=== PATIENT | female | born 1970 | race Caucasian/White ===

== ENCOUNTER 2020-12-10 23:57 | Emergency (ER) | payer OTHER ==
--- OUTSIDE RECORDS SUMMARY | 2020-12-11 00:03 | XMS REPORT | Continuity of Care Document ---
:1970 Author Organization [facility] t Address [address] [place] [address] Care Team Providers Name Role Phone MARILYN Primary Care Physician Unavailable WHITNEY Attending Clinician Unavailable ML DAMON Attending Clinician Unavailable HNOEY Attending Clinician Unavailable LEXIS Attending Clinician Unavailable Payers Payer Name Policy Type Policy Number Effective Date Expiration Date S matthieu [employer] 2 [id number] 2020 00:00:00 [employer] O [id number] 2011 00:00:00 Problems This patient has no known problems. Allergies, Adverse Reactions, Alerts This patient has no known allergies or adverse reactions. Medications This patient has no known medications. Vital Signs Vital Name Observation Time Observation Value Comments Source HEIGHT 2020-03-04 11:29:00 157.5 cm WEIGHT 2020-03-04 11:29:00 125.6 kg Procedures This patient has no known procedures. Encounters Start End Encounter Admission Attending Care Care Encounter Source Date/Time Date/Time Type Type Clinicians Facility Department ID 2020-08-29 Outpatient WHITNEY [facility] [id number] [place] 03:19:58 [facility] 2020-12-18 2020-12-18 Outpatient JADE DAMON [id number] Jade 15:30:00 15:30:00 ELSA jackson 2020-12-10 2020-12-10 Outpatient JADE DAMON [id number] Jade 13:30:00 13:30:00 ELSA Greenol manuel 2020-12-08 2020-12-08 Outpatient JADE DAMON JADE [id number] Jade 09:00:00 09:00:00 ELSA Stacy manuel 2020-11-23 2020-11-23 Telephone REN Cee [id number] 00:00:00 00:00:00 Trina SUBRAMANIAN [id number] 2020-03-04 2020-03-04 Outpatient JESUS MÉNDEZ MDA MDA [id number] 12:00:00 23:59:00 JEAN CARLOS calero 2020-03-04 2020-03-04 Outpatient JESUS PIRES MDA MDA [id number] 10:49:04 11:52:36 LAZ calero 2020-03-04 2020-03-04 Outpatient JESUS PIRES MDA MDA [id number] 09:51:32 09:51:32 LAZ calero Results This patient has no known results.
[2020-12-11] MEDS ORDERED: LIDOCAINE VISCOUS 2% SOLN 15 ML UDC ONE (01:36)
[2020-12-11 01:49] LABS: SARS-COV-2 RT PCR NEGATIVE (NEGATIVE)
--- NOTE | 2020-12-11 02:13 | EDPHYS ---
Physician Documentation [facility] Name: Gretchen Galarza Age: 50 yrs Sex: Female : 1970 Arrival Date: 12/11/2020 Time: 00:08 Bed 25 Private MD: ED Physician Sol Hernandez HPI: 12/11 00:45 This 50 yrs old Female presents to ER via Ambulatory with complaints of cp Allergy Symptoms. 00:45 The patient presents with sore throat. cp 00:45 The patient describes throat pain as constant, dry. cp 00:45 Onset: The symptoms/episode began/occurred 3 day(s) ago. cp 00:45 Associated signs and symptoms: Pertinent positives: cough, earache, Pertinent negatives cp diarrhea, fever, headache, rhinorrhea. 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 - Irregular menses kg Historical: - Allergies: 00:12 None; kg - Home Meds: 00:12 pravastatin 40 mg oral tab 1 tab once daily [Active]; levocetirizine 5 mg oral tab 1 kg tab once daily [Active]; sotalol 80 mg Oral tab 1 tab 2 times per day [Active]; allopurinol 100 mg Oral tab 1 tab once daily [Active]; lisinopril 10 mg oral tab once daily [Active]; montelukast 10 mg oral tab 1 tab once daily [Active]; Ozempic subcutaneous once wkly [Active]; Coreg Oral [Active]; olopatadine 0.6 % nasal spry [Active]; - PMHx: 00:12 PCOS; Hypertension; cardiomyopathy; Hypercholesterolemia; kg - PSHx: 00:12 section; cardiac ablation; uterine ablation; I\T\D of staph infection right arm; kg - Immunization history:: Adult Immunizations up to date, Client reports receiving the 2nd dose of the Covid vaccine, Date received: May 2020 Client reports receiving the 1st dose of the Covid vaccine, April 2020. - Social history:: Smoking status: Patient denies any tobacco usage or history of. Patient uses alcohol, occasionally. ROS: 00:50 Constitutional: Negative for body aches, chills, fever, poor PO intake. cp 00:50 Eyes: Negative for injury, pain, redness, and discharge. cp 00:50 ENT: Positive for sore throat, Negative for drainage from ear(s), sinus congestion, sinus pain, difficulty swallowing, difficulty handling secretions, hoarseness. 00:50 Neck: Negative for pain with movement, pain at rest, stiffness. 00:50 Respiratory: Positive for cough, with no reported sputum, Negative for shortness of breath, wheezing. 00:50 Abdomen/GI: Negative for abdominal pain, nausea, vomiting, and diarrhea. 00:50 Skin: Negative for cellulitis, rash. 00:50 Neuro: Negative for altered mental status, headache, weakness. 00:50 All other systems are negative. Exam: 00:55 Constitutional: The patient appears in no acute distress, alert, awake, cp non-diaphoretic, non-toxic, well developed, well nourished, obese. 00:55 Head/Face: Normocephalic, atraumatic. cp 00:55 Eyes: Periorbital structures: appear normal, Conjunctiva: normal, no exudate, no injection, Sclera: no appreciated abnormality, Lids and lashes: appear normal, bilaterally. 00:55 ENT: External ear(s): are unremarkable, Ear canal(s): are normal, clear, TM's: bulging, is not appreciated, bilaterally, dullness, bilaterally, erythema, is not appreciated, bilaterally, Nose: is normal, Mouth: Lips: moist, Oral mucosa: moist, Posterior pharynx: Airway: no evidence of obstruction, patent, Tonsils: no enlargement, no exudate, Uvula: midline, swelling, is not appreciated, erythema, that is moderate. 00:55 Neck: ROM/movement: is normal, is supple, no meningismus, no nuchal rigidity, Lymph nodes: no appreciated lymphadenopathy. 00:55 Chest/axilla: Inspection: normal, Palpation: is normal, no crepitus, no tenderness. 00:55 Cardiovascular: Rate: normal, Rhythm: regular. 00:55 Respiratory: the patient does not display signs of respiratory distress, Respirations: normal, no use of accessory muscles, no retractions, labored breathing, is not present, Breath sounds: are clear throughout, no decreased breath sounds, no stridor, no wheezing. 00:55 Skin: no rash present. Vital Signs: 00:09 BP 153 / 99; Pulse 71; Resp 20; Temp 98.7(O); Pulse Ox 98% on R/A; Weight 116.57 kg kg (R); Height 5 ft. 2 in. (157.48 cm); Pain 10/10; 02:50 BP 125 / 82; Pulse 78; Resp 19; Pulse Ox 99% ; lh3 00:09 Body Mass Index 47.01 (116.57 kg, 157.48 cm) kg MDM: 00:36 Patient medically screened. cp 01:00 Differential diagnosis: epiglottitis, group A strep tonsillitis, influenza, laryngitis, cp ashvin's angina, mononucleosis, peritonsillar abscess retropharyngeal abcess tonsillitis, uvulitis, COVID-19. 02:10 Data reviewed: vital signs, nurses notes, lab test result(s), and as a result, I will cp discharge patient. Counseling: I had a detailed discussion with the patient and/or guardian regarding: the historical points, exam findings, and any diagnostic results supporting the discharge/admit diagnosis, lab results, to return to the emergency department if symptoms worsen or persist or if there are any questions or concerns that arise at home. Response to treatment: the patient's symptoms have mildly improved after treatment, and as a result, I will discharge patient. ED course: VSS. Labs reviewed and negative results for COVID-19, influenza, and mono. Patient reports negative rapid test for strep today. Currently taking Amoxicillin for ear infection. Will discharge to home for continued monitoring. 12/11 00:44 Order name: [place] Screen Profile; Complete Time: 01:55 cp 12/11 01:55 Interpretation: Reviewed. 12/11 01:49 Order name: COVID-19/FLU A+B; Complete Time: 01:55 EDMS 12/11 01:55 Interpretation: Reviewed. cp Administered Medications: 01:19 Drug: Viscous Lidocaine Liquid (4 %) 5 ml Route: Mucous Membrane; lh3 02:38 Drug: Lortab (HYDROcodone-acetaminophen) Liquid 15 ml Route: PO; lh3 02:52 Follow up: Response: No adverse reaction lh3 02:38 Drug: Decadron-pedi - Decadron (dexamethasone) (0.6mg/kg) 10 mg Route: IM; Site: right lh3 deltoid; 02:52 Follow up: Response: No adverse reaction 3 Disposition: 07:33 Co-signature as Attending PhysicianSol I agree with the assessment and plan sp3 of care. Disposition Summary: 12/11/20 02:12 Discharge Ordered Location: Home cp Problem: new cp Symptoms: have improved cp Condition: Stable cp Diagnosis - Acute pharyngitis, unspecified cp Followup: cp - With: Private Physician - When: 2 - 3 days - Reason: Worsening of condition Discharge Instructions: - Discharge Summary Sheet cp - Pharyngitis cp - Sore Throat cp Forms: - Medication Reconciliation Form cp - Thank You Letter cp - Antibiotic Education cp - Prescription Opioid Use cp - Work release form 3 Prescriptions: - Lidocaine Viscous - take 5 milliliter by ORAL route every 4-6 hours As needed; 1 bottle; Refills: cp 0, Product Selection Permitted Signatures: Dispatcher [employer] EDMS Fidel Rg PA PA cp Graham, Kristen, RN RN Sol Lord 3 Heidi Wilson RN RN 3 Corrections: (The following items were deleted from the chart) 01:10 00:45 CORONAVIRUS+MR.LAB.BRZ ordered. EDMS EDMS 01:10 00:45 Influenza Screen (A \T\ B)+BA.LAB.BRZ ordered. EDMS EDMS
--- NOTE | 2020-12-11 02:13 | ER ---
Nurse's Notes [facility] Name: Gretchen Galarza Age: 50 yrs Sex: Female : 1970 Arrival Date: 12/11/2020 Time: 00:08 Bed 25 Private MD: Diagnosis: Acute pharyngitis, unspecified Presentation: 12/11 00:09 Chief complaint: Patient states: Sore throat, difficult swallowing, dry throat, ear kg pressure x 2 days. Pt saw PCP on Monday and her was told her ear were red. They started her on Amoxicillin 500 mg TID. Pt stated she felt like it had gotten worse so went back to PCP today and they tested her for strep which was negative. Pt denies fevers at home. Coronavirus screen: Client denies travel out of the [place] in the last 14 days. At this time, unable to obtain information related to travel outside the [place] At this time, the client does not indicate any symptoms associated with coronavirus-19. Ebola Screen: Patient negative for fever greater than or equal to 101.5 degrees Fahrenheit, and additional compatible Ebola Virus Disease symptoms Patient denies exposure to infectious person. Patient denies travel to an Ebola-affected area in the 21 days before illness onset. 00:09 Method Of Arrival: Ambulatory kg 00:39 Acuity: VIKI 4 em Triage Assessment: 00:12 General: Appears in no apparent distress. Behavior is calm, cooperative, appropriate kg for age, quiet. Pain: Complains of pain in neck Pain currently is 10 out of 10 on a pain scale. at worst was 10 out of 10 on a pain scale. 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 - Irregular menses kg Historical: - Allergies: 00:12 None; kg - Home Meds: 00:12 pravastatin 40 mg oral tab 1 tab once daily [Active]; levocetirizine 5 mg oral tab 1 kg tab once daily [Active]; sotalol 80 mg Oral tab 1 tab 2 times per day [Active]; allopurinol 100 mg Oral tab 1 tab once daily [Active]; lisinopril 10 mg oral tab once daily [Active]; montelukast 10 mg oral tab 1 tab once daily [Active]; Ozempic subcutaneous once wkly [Active]; Coreg Oral [Active]; olopatadine 0.6 % nasal spry [Active]; - PMHx: 00:12 PCOS; Hypertension; cardiomyopathy; Hypercholesterolemia; kg - PSHx: 00:12 section; cardiac ablation; uterine ablation; I\T\D of staph infection right arm; kg - Immunization history:: Adult Immunizations up to date, Client reports receiving the 2nd dose of the Covid vaccine, Date received: May 2020 Client reports receiving the 1st dose of the Covid vaccine, April 2020. - Social history:: Smoking status: Patient denies any tobacco usage or history of. Patient uses alcohol, occasionally. Screenin:20 Abuse screen: Denies threats or abuse. Denies injuries from another. Nutritional kg screening: No deficits noted. Tuberculosis screening: No symptoms or risk factors identified. Fall Risk None identified. Assessment: 02:51 Reassessment: Patient appears in no apparent distress at this time. Respiratory: Airway lh3 is patent. Vital Signs: 00:09 BP 153 / 99; Pulse 71; Resp 20; Temp 98.7(O); Pulse Ox 98% on R/A; Weight 116.57 kg kg (R); Height 5 ft. 2 in. (157.48 cm); Pain 10/10; 02:50 BP 125 / 82; Pulse 78; Resp 19; Pulse Ox 99% ; lh3 00:09 Body Mass Index 47.01 (116.57 kg, 157.48 cm) kg ED Course: 00:08 Patient arrived in ED. wm 00:20 Patient has correct armband on for positive identification. kg 00:31 Fidel Rg PA is PHCP. cp 00:31 Sol Hernandez is Attending Physician. cp 00:39 Triage completed. em 01:18 Heidi Wilson, MEGHA is Primary Nurse. lh3 01:19 [place] Screen Profile Sent. lh3 02:50 Arm band placed on right wrist. lh3 02:51 No provider procedures requiring assistance completed. Inserted saline lock: 20 gauge lh3 in left antecubital area, using aseptic technique. 02:51 IV discontinued, bleeding controlled. lh3 Administered Medications: 01:19 Drug: Viscous Lidocaine Liquid (4 %) 5 ml Route: Mucous Membrane; lh3 02:38 Drug: Lortab (HYDROcodone-acetaminophen) Liquid 15 ml Route: PO; lh3 02:52 Follow up: Response: No adverse reaction 3 02:38 Drug: Decadron-pedi - Decadron (dexamethasone) (0.6mg/kg) 10 mg Route: IM; Site: right lh3 deltoid; 02:52 Follow up: Response: No adverse reaction 3 Outcome: 02:12 Discharge ordered by MD. serrano 02:51 Discharged to home ambulatory. 3 02:51 Condition: stable 02:51 Discharge instructions given to patient, Instructed on discharge instructions, medication usage, Demonstrated understanding of instructions, medications. 02:53 Patient left the ED. 3 Signatures: Singh Calloway, RN RN Fidel Novoa PA PA cp Graham, Kristen, Ama Quinonez RN, kg, Latisha RN RN 3
[2020-12-11] MEDS ORDERED: dexAMETHasone 10 MG/ML VIAL ONE (02:54)
[2020-12-11] MEDS ORDERED: HYDROCOD 2.5mg-ACETAMIN 108mg/5mL Soln ONE (02:54)
[2020-12-11 03:34] VITALS: TEMP 98.7
[2020-12-11 03:37] VITALS: BP 125/82; O2SAT 99
== END 2020-12-11 02:53 | disposition home or self-care (01) ==
LOC: ER 23:57
DX: J02.9 Acute pharyngitis, unspecified (principal); R05 Cough; Z20.822 Contact with and (suspected) exposure to COVID-19; I10 Essential (primary) hypertension
CPT/HCPCS: 36415; 86308; 0240U; 96372; 99283; J1100

== ENCOUNTER 2021-01-29 00:36 | Emergency (ER) | payer OTHER ==
[2021-01-29 02:09] LABS: Absolute Lymphocytes (CBC) 1.5 K/uL (0.7-4.9); Basophils % 0.4 % (0-1.3); Hematocrit 41.2 % (36.0-45.0); Lymphocytes % 13.8 % (15.3-44.8); MPV 7.8 fL (7.6-11.3); RBC Red Blood Cell Count 4.62 M/uL (3.86-4.86)
[2021-01-29 02:11] LABS: Urine Blood Trace-intact (Negative); Urine Glucose Negative (Negative); Urine Protein Negative (Negative); Urine Specific Gravity 1.025 (1.005-1.030)
[2021-01-29 02:29] LABS: Albumin 3.5 g/dL (3.4-5.0); Bilirubin Direct 0.1 mg/dL (0-0.2); Bilirubin Total 0.8 mg/dL (0.2-1.0); Protein, Total 7.3 g/dL (6.4-8.2)
--- NOTE | 2021-01-29 04:14 | EDPHYS ---
Physician Documentation [facility] Name: Gretchen Galarza Age: 50 yrs Sex: Female : 1970 Arrival Date: 01/29/2021 Time: 00:39 Bed 10 Private MD: ED Physician Ambrose Joe HPI: 01/29 01:32 This 50 yrs old Female presents to ER via Wheelchair with complaints of pkl Abdominal Cramping, Diarrhea. 01:32 The patient presents with abdominal pain in the upper abdomen. Onset: The pkl symptoms/episode began/occurred just prior to arrival, 2 hour(s) ago. The symptoms do not radiate. Associated signs and symptoms: Pertinent positives: diarrhea. 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 cc4 Historical: - Allergies: 00:53 anything with alcohol in it; df1 - Home Meds: 00:53 allopurinol 100 mg Oral tab 1 tab once daily [Active]; carvedilol 12.5 mg oral tab 1 df1 tab 2 times per day [Active]; lisinopril 10 mg Oral tab 1 tab once daily [Active]; pravastatin 40 mg Oral tab 1 tab once daily [Active]; sotalol 80 mg Oral tab 1 tab 2 times per day [Active]; Ozempic subcutaneous once wkly [Active]; montelukast 10 mg Oral tab 1 tab once daily [Active]; levocetirizine 5 mg Oral tab 1 tab once daily [Active]; - PMHx: 00:53 cardiomyopathy; PCOS; Diabetes - NIDDM; Hypertension; Hypercholesterolemia; df1 - PSHx: 00:53 I\T\D of staph infection right arm; section; Cardiac Ablation; uterine ablation; df1 - Immunization history:: Adult Immunizations up to date, Client reports receiving the 2nd dose of the Covid vaccine. - Social history:: Smoking status: Patient denies any tobacco usage or history of. Patient/guardian denies using alcohol, street drugs. ROS: 01:32 Eyes: Negative for injury, pain, redness, and discharge, ENT: Negative for injury, pkl pain, and discharge, Neck: Negative for injury, pain, and swelling, Cardiovascular: Negative for chest pain, palpitations, and edema, Respiratory: Negative for shortness of breath, cough, wheezing, and pleuritic chest pain. 01:32 Abdomen/GI: Positive for abdominal pain, of the right upper quadrant and left upper quadrant. 01:32 Back: Negative for acute changes. :32 : Negative for urinary symptoms. :32 MS/extremity: Negative for acute changes. :32 Skin: Negative for rash. 01:32 Neuro: Negative for altered mental status, loss of consciousness. Exam: :32 Head/Face: Normocephalic, atraumatic. Eyes: Pupils equal round and reactive to light, pkl extra-ocular motions intact. Lids and lashes normal. Conjunctiva and sclera are non-icteric and not injected. Cornea within normal limits. Periorbital areas with no swelling, redness, or edema. ENT: Nares patent. No nasal discharge, no septal abnormalities noted. Tympanic membranes are normal and external auditory canals are clear. Oropharynx with no redness, swelling, or masses, exudates, or evidence of obstruction, uvula midline. Mucous membranes moist. Neck: Trachea midline, no thyromegaly or masses palpated, and no cervical lymphadenopathy. Supple, full range of motion without nuchal rigidity, or vertebral point tenderness. No Meningismus. Chest/axilla: Normal chest wall appearance and motion. Nontender with no deformity. No lesions are appreciated. Cardiovascular: Regular rate and rhythm with a normal S1 and S2. No gallops, murmurs, or rubs. Normal PMI, no JVD. No pulse deficits. Respiratory: Lungs have equal breath sounds bilaterally, clear to auscultation and percussion. No rales, rhonchi or wheezes noted. No increased work of breathing, no retractions or nasal flaring. 01:32 Abdomen/GI: Bowel sounds: normal, Palpation: soft, mild abdominal tenderness, in the right upper quadrant. 01:32 Back: Exam negative for acute changes. :32 Musculoskeletal/extremity: Exam is negative for acute changes. :32 Skin: Exam negative for rash. :32 Neuro: Orientation: is normal, Mentation: is normal, Cranial nerves: grossly normal, Motor: is normal. Vital Signs: 00:52 BP 125 / 80; Resp 18; Temp 98.4; Weight 117.93 kg; Height 5 ft. 2 in. (157.48 cm); Pain df1 0/10; 01:11 Pulse 89; Pulse Ox 97% on R/A; df1 02:45 BP 114 / 84; Pulse 87; Resp 18; Temp 98.2; Pulse Ox 100% on R/A; cc4 04:15 BP 101 / 71; Pulse 89; Resp 20; Temp 98.4; Pulse Ox 100% on R/A; cc4 00:52 Body Mass Index 47.55 (117.93 kg, 157.48 cm) df1 MDM: 01:02 Patient medically screened. pkl 04:10 Data reviewed: vital signs, nurses notes, lab test result(s), radiologic studies, CT pkl scan. ED course: Discussed lab and CT Scan results with patient. Advised to follow up with her G. I. ( Dr. Cartagena ) next week. Patient understood instruction. 01/29 01:31 Order name: Basic Metabolic Panel; Complete Time: 02:30 pkl 01/29 01:31 Order name: CBC with Diff; Complete Time: 02:30 pkl 01/29 01:31 Order name: Hepatic Function; Complete Time: 02:30 pkl 01/29 01:31 Order name: Lipase; Complete Time: 02:30 pkl 01/29 01:31 Order name: US Abdomen Limited pkl 01/29 02:11 Order name: Urine Dipstick-Ancillary; Complete Time: 02:30 EDMS 01/29 01:06 Order name: Urine Dipstick-Ancillary (obtain specimen); Complete Time: 02:21 df1 01/29 01:31 Order name: IV Saline Lock; Complete Time: 02:21 pkl 01/29 01:31 Order name: Labs collected and sent; Complete Time: 02:21 pkl 01/29 02:34 Order name: CT Abd/Pelvis - IV Contrast Only pkl Administered Medications: 04:15 Drug: Cipro (ciprofloxacin) 500 mg Route: PO; cc4 04:15 Follow up: Response: No adverse reaction cc4 Disposition Summary: 01/29/21 04:13 Discharge Ordered Location: Home pkl Problem: new pkl Symptoms: have improved pkl Condition: Stable pkl Diagnosis - Abdominal pain. Gastroenteritis pkl Followup: pkl - With: David Cartagena MD - When: 1 week - Reason: Re-evaluation by your physician Discharge Instructions: - Discharge Summary Sheet pkl Forms: - Medication Reconciliation Form pkl - Thank You Letter pkl - Antibiotic Education pkl - Prescription Opioid Use pkl - Work release form cc4 Prescriptions: - Cipro 500 mg Oral Tablet - take 1 tablet by ORAL route every 12 hours for 5 days; 10 tablet; Refills: 0, pkl Product Selection Permitted Signatures: Dispatcher [employer] Ambrose Ghotra MD MD pkl Elsy Benito RN RN cc4 Neris Zelaya df1
--- NOTE | 2021-01-29 04:14 | ER ---
Nurse's Notes [facility] Name: Gretchen Galarza Age: 50 yrs Sex: Female : 1970 Arrival Date: 01/29/2021 Time: 00:39 Bed 10 Private MD: Diagnosis: Abdominal pain. Gastroenteritis Presentation: 01/29 00:52 Chief complaint: Patient states: generalized abd pain. Coronavirus screen: Vaccine df1 status: Patient reports receiving the 2nd dose of the covid vaccine. The client reports previous COVID testing was negative. Date of collection: December 2020. Ebola Screen: Patient negative for fever greater than or equal to 101.5 degrees Fahrenheit, and additional compatible Ebola Virus Disease symptoms Patient denies exposure to infectious person. Patient denies travel to an Ebola-affected area in the 21 days before illness onset. Initial Sepsis Screen: Does the patient meet any 2 criteria? No. Patient's initial sepsis screen is negative. Risk Assessment: Do you want to hurt yourself or someone else? Patient reports no desire to harm self or others. Onset of symptoms was January 28, 2021 at 23:00. 00:52 Method Of Arrival: Wheelchair df1 00:52 Acuity: VIKI 3 df1 00:57 Note Pt states woke up at 2300 last night with abd cramping, nausea, burping, some df1 loose stool. 04:15 Initial Sepsis Screen: Does the patient have a suspected source of infection? No. cc4 Patient's initial sepsis screen is negative. Triage Assessment: 00:52 General: Appears in no apparent distress. States, "My abdomen was hurting/cramping from cc4 11:30 to 12:30", "Now it feels better".. TOW FEEDER: 01:15 [facility] 2012 cc4 Historical: - Allergies: 00:53 anything with alcohol in it; df1 - Home Meds: 00:53 allopurinol 100 mg Oral tab 1 tab once daily [Active]; carvedilol 12.5 mg oral tab 1 df1 tab 2 times per day [Active]; lisinopril 10 mg Oral tab 1 tab once daily [Active]; pravastatin 40 mg Oral tab 1 tab once daily [Active]; sotalol 80 mg Oral tab 1 tab 2 times per day [Active]; Ozempic subcutaneous once wkly [Active]; montelukast 10 mg Oral tab 1 tab once daily [Active]; levocetirizine 5 mg Oral tab 1 tab once daily [Active]; - PMHx: 00:53 cardiomyopathy; PCOS; Diabetes - NIDDM; Hypertension; Hypercholesterolemia; df1 - PSHx: 00:53 I\\T\\D of staph infection right arm; section; Cardiac Ablation; uterine ablation; df1 - Immunization history:: Adult Immunizations up to date, Client reports receiving the 2nd dose of the Covid vaccine. - Social history:: Smoking status: Patient denies any tobacco usage or history of. Patient/guardian denies using alcohol, street drugs. Screenin:08 Abuse screen: Denies threats or abuse. Nutritional screening: No deficits noted. df1 Tuberculosis screening: No symptoms or risk factors identified. Fall Risk None identified. Assessment: 01:15 General: Appears in no apparent distress. Behavior is calm, cooperative, Reports cc4 Reports from 11:30 to 12:30 I was having severe cramping of my abdomen (upper and lower) with sm. loose BM after eating chicken and "I started to break out in a sweat"; states, "I'm not hurting now"; bilateral upper quads of abd tender to palpate; abd. soft/obese; + BS's x 4 quads. Pain: Denies pain. 01:15 GI: Abd is soft Abdomen is tender to palpation Bilateral upper quads of abd. Obese. cc4 01:15 GI: Bowel sounds present X 4 quads. Normoactive. cc4 Vital Signs: 00:52 BP 125 / 80; Resp 18; Temp 98.4; Weight 117.93 kg; Height 5 ft. 2 in. (157.48 cm); Pain df1 0/10; 01:11 Pulse 89; Pulse Ox 97% on R/A; df1 02:45 BP 114 / 84; Pulse 87; Resp 18; Temp 98.2; Pulse Ox 100% on R/A; cc4 04:15 BP 101 / 71; Pulse 89; Resp 20; Temp 98.4; Pulse Ox 100% on R/A; cc4 00:52 Body Mass Index 47.55 (117.93 kg, 157.48 cm) df1 ED Course: 00:39 Patient arrived in ED. bp1 00:53 Triage completed. df1 01:02 Ambrose Joe MD is Attending Physician. pkl 01:45 Urine obtained. Labs ordered per protocol. Drawn by ED staff. X-ray ordered. CT cc4 ordered. Ultrasound of abdomen. 01:53 Inserted saline lock: 22 gauge in left forearm, using aseptic technique. Blood ms4 collected. 02:08 US Abdomen Limited In Process Unspecified. EDMS 02:08 Patient has correct armband on for positive identification. Placed in gown. Bed in low df1 position. Call light in reach. Side rails up X 1. 02:21 Elsy Benito, RN is Primary Nurse. cc4 02:21 Basic Metabolic Panel Sent. cc4 02:21 Hepatic Function Sent. cc4 02:21 Lipase Sent. cc4 03:14 CT Abd/Pelvis - IV Contrast Only In Process Unspecified. EDMS 04:12 David Cartagena MD is Referral Physician. pkl 04:15 No provider procedures requiring assistance completed. cc4 04:15 IV discontinued, intact, bleeding controlled, No redness/swelling at site. Pressure cc4 dressing applied. 04:15 Patient Cipro 500mg given po. cc4 Administered Medications: 04:15 Drug: Cipro (ciprofloxacin) 500 mg Route: PO; cc4 04:15 Follow up: Response: No adverse reaction cc4 Outcome: 04:13 Discharge ordered by . pkl 04:15 Discharged to home with family. cc4 04:15 Condition: improved 04:15 Discharge instructions given to patient, Instructed on discharge instructions, follow up and referral plans. medication usage, Demonstrated understanding of instructions, follow-up care, medications, Prescriptions given X 1. 04:45 Patient left the ED. cc4 Signatures: Dispatcher [employer] EDNC Ambrose Joe MD MD pkl Maureen Pressley bp1 Martha Dailey RN RN ms4 Elsy Benito, MEGHA RN cc4 Neris Zelaya df1 Corrections: (The following items were deleted from the chart) 04:37 02:09 General: Appears in no apparent distress. Behavior is calm, cooperative, df1 cc4 04:37 02:09 Pain: Denies pain. df1 cc4 04:37 02:09 GI: Reports lower abdominal pain, upper abdominal pain, df1 cc4
[2021-01-29] MEDS ORDERED: CIPROFLOXACIN HCL 500 MG TAB ONE (04:37)
[2021-01-29 04:54] VITALS: O2SAT 100
[2021-01-29 04:55] VITALS: BP 101/71; TEMP 98.4
--- NOTE | 2021-01-29 08:32 | RAD REPORT ---
EXAM DESCRIPTION: US - Abdomen Exam Limited - 01/29/2021 2:08 am CLINICAL HISTORY: ABD PAIN COMPARISON: ABDOMINAL EXAM LIMITED dated 02/21/2013 FINDINGS: The gallbladder demonstrates no gallstones. No pericholecystic fluid or gallbladder wall t hickening. The common bile duct is normal measuring 4 mm. The liver demonstrates no findings of intrahepatic biliary dilatation. IMPRESSION: Unremarkable examination.
--- NOTE | 2021-01-29 10:22 | RAD REPORT ---
EXAM DESCRIPTION: CT Abdomen and Pelvis With Intravenous Contrast CLINICAL HISTORY: The patient is 50 years old and is Female; ABD PAIN TECHNIQUE: Axial computed tomography images of the abdomen and pelvis with intravenous contrast. S agittal and coronal reformatted images were created and reviewed. This CT exam was performed using one or more of the following dose reduction techniques: automated exposure control, adjustment of t he mA and/or kV according to patient size, and/or use of iterative reconstruction technique. COMPARISON: No relevant prior studies available. FINDINGS: Lung bases: 3 mm groundglass nodule in the right lower lobe, image 1 series 501. ABDOMEN: Liver: Unremarkable. No mass. Gallbladder and bile ducts: Unremarkable. No calcified stones. No ductal dilation. Pancreas: Unremarkable. No mass. No ductal dilation. Spleen: Mild splenomegaly. Adrenals: Unremarkable. No mass. Kidneys and ureters: Unremarkable. No solid mass. No hydronephrosis. Stomach and bowel: Bowel wall thickening and mild adjacent fat stranding involving the distal sm all bowel. No obstruction. PELVIS: Appendix: No findings to suggest acute appendicitis. Bladder: Unremarkable. No mass. Reproductive: Unremarkable as visualized. ABDOMEN and PELVIS: Intraperitoneal space: Unremarkable. No free air. No significant fluid collection. Bones/joints: No acute fracture. No dislocation. Soft tissues: Unremarkable. Vasculature: Unremarkable. No abdominal aortic aneurysm. Lymph nodes: Unremarkable. No enlarged lymph nodes. IMPRESSION: Bowel wall thickening and mild adjacent fat stranding involving the distal small bowel. Findings are nonspecific but can be seen with enteritis/ileitis. Electronically signed by: Nash Rodriges MD 01/29/2021 3:57 AM CDT Due to temporary technical issues with the PACS/Fluency reporting system, reports are being signed by the in house radiologist without review as a courtesy to ensure prompt reporting. The interpreting r adiologist is fully responsible for the content of the report.
== END 2021-01-29 04:45 | disposition home or self-care (01) ==
LOC: ER 00:36
DX: K52.9 Noninfective gastroenteritis and colitis, unspecified (principal); I10 Essential (primary) hypertension; E11.9 Type 2 diabetes mellitus without complications; E78.00 Pure hypercholesterolemia, unspecified
CPT/HCPCS: 85025; 80048; 36415; 80076; 81003; 83690; 74177; 76705; 99284; Q9967

== ENCOUNTER 2022-04-09 13:55 | Emergency (ER) | payer OTHER ==
--- OUTSIDE RECORDS SUMMARY | 2022-04-09 13:58 | XMS REPORT | Continuity of Care Document ---
:1970 Author Organization [facility] t Address [address] [place] [place] [address] Care Team Providers Name Role Phone [phone] Primary Care Physician Unavailable SANJIV CEE Attending Clinician Unavailable LINETTE WOODY Attending Clinician Unavailable GABRIEL CARDENAS Attending Clinician Unavailable MARISELA JACOBS Attending Clinician Unavailable FOG_A_Provider Attending Clinician Unavailable Alessandra WOLF, Med Zayas Attending Clinician Nima Sears MA Attending Clinician Unavailable LAZ PIRES Attending Clinician Unavailable Garland Flores RN Attending Clinician Unavailable RADIOLOGY Attending Clinician Unavailable Radiology Attending Clinician Unavailable Marisol Solis MA Attending Clinician Unavailable Alida Damon MD Attending Clinician [phone] ALIDA DAMON Attending Clinician Unavailable ANIKA MONIQUE Attending Clinician Unavailable MELISSA PEDROZA Attending Clinician Unavailable JEAN CARLOS MÉNDEZ Attending Clinician Unavailable FOG_A_Provider Admitting Clinician Unavailable DIANE ANDRES Admitting Clinician Unavailable Payers Payer Name Policy Type Policy Number Effective Date Expiration Date S our OPEN ACCESS AETNA [id number] 2011 SELECT EPO 00:00:00 AETNA O [id number] 2011 00:00:00 AETNA (EPO) [id number] 2011 00:00:00 [place] [id number] 2020 EMPLOYEE-AETNA 00:00:00 Problems Condition Condition Condition Status Onset Resolution Last Treating Co mments Source Name Details Category Date Date Treatment Clinician Date 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 0-28 He alth athy athy 00:00: 00 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 (premature 0-28 He alth ventricula ventricula 00:00: r r 00 contractio contractio n) n) Automatic Automatic Disease Active 2020-04 UT atrial atrial 0 Health tachycardi tachycardi 00:00: a a 00 Personal Personal Disease Active 2020-04 UT history of history of 0-28 He alth atrial atrial 00:00: tachycardi tachycardi 00 a a Hypertensi Hypertensi Disease Active 2020-04 U T on on 0 Health 00:00: 00 Encounter Encounter Disease Active Boris y for for 4-16 [facility] 00:00: examinatio examinatio 00 n to n to establish establish care care Obesity Obesity Disease Active Jade 4-16 [facility] 00:00: 00 Anxiety Anxiety Disease Active Jade 4-16 [facility] 00:00: 00 Essential Essential Disease Active Boris molinay hypertensi hypertensi 4-16 Se ybold on on 00:00: 00 Hyperlipid Hyperlipid Disease Active K elsey emia emia 4-16 [facility] 00:00: 00 No known No known Disease Metho di active active st problems problems Hospit a l Allergies, Adverse Reactions, Alerts Allergy Allergy Status Severity Reaction(s) Onset Inactive Treating Comm ents Source Name Type Date Date Clinician NO KNOWN Drug Active Univers ALLERGIE Class ity of [facility] Social History Social Habit Start Date Stop Date Quantity Comments Source History [facility] Health Alcohol Frequency History [facility] Health Alcohol Std Drinks History [facility] Health Alcohol Binge Alcohol intake 2022-02-01 2022-02-01 [facility] 00:[facility] 00:00[facility]00 Hospital Exposure to 2021-11-28 2021-12-08 Not sure [facility] SARS-CoV-2 00:00:00 08:44:00 (event) Alcohol Comment 2021-11-17 2021-11-17 SOCIALLY [facility] 00:00:00 00:00:00 Tobacco use and 2021-11-17 2021-11-17 Smokeless tobacco [facility] exposure 00:00:00 00:00:00 non-user Sex Ass[birth year] At [birth year] [facility] 00:00[facility] 00:[facility]00 Hospital Smoking Status Start Date Stop Date Source Tobacco smoking consumption unknown [facility] Never smoked tobacco [facility] Medications Ordered Filled Start Stop Current Ordering Indication Dosage Frequency Signature Comments Components Source Medication Medication Date Date Medication? Clinician (SIG) Name Name meloxicam 2021- No [id number] 15mg QD Take 1 M ethodi (MOBIC) 15 12-24 10-11 tablet (15 st mg tablet 00:00: 00:00 mg total) Ho spita 00 :00 by mouth l daily. Multiple Yes Take by UT Vitamin 8-17 mouth. Health (multivitam 08:57: in) capsule 27 VITAMIN D Yes QD Take by UT PO 8-17 mouth 1 Health 08:57: (one) time 27 each day. sotalol Yes [id number] 80mg Q.5D Take 1 UT (Betapace) 8-08 tablet (80 Hea lth 80 MG 00:00: mg total) tablet 00 by mouth in the morning and 1 tablet (80 mg total) in the evening. sotalol Yes [id number] 80mg Q.5D Take 1 UT (Betapace) 8-08 tablet (80 Hea lth 80 MG 00:00: mg total) tablet 00 by mouth in the morning and 1 tablet (80 mg total) in the evening. venlafaxine 2022- No [id number] 75mg QD Take 2 UT XR 11-17 capsules Health (Effexor-XR 00:00: 04:59 (75 mg ) 37.5 MG 00 :00 total) by 24 hr mouth 1 capsule (one) time each day. Do not crush or chew. venlafaxine 2022- No [id number] 75mg QD Take 2 UT XR 11-17 capsules Health (Effexor-XR 00:00: 04:59 (75 mg ) 37.5 MG 00 :00 total) by 24 hr mouth 1 capsule (one) time each day. Do not crush or chew. venlafaxine 2022- No [id number] 75mg QD Take 2 UT XR 11-17 capsules Health (Effexor-XR 00:00: 04:59 (75 mg ) 37.5 MG 00 :00 total) by 24 hr mouth 1 capsule (one) time each day. Do not crush or chew. venlafaxine 2022- No [id number] 75mg QD Take 2 UT XR 11-17 capsules Health (Effexor-XR 00:00: 04:59 (75 mg ) 37.5 MG 00 :00 total) by 24 hr mouth 1 capsule (one) time each day. Do not crush or chew. venlafaxine 2022- No [id number] 75mg QD Take 2 UT XR 11-17 capsules Health (Effexor-XR 00:00: 04:59 (75 mg ) 37.5 MG 00 :00 total) by 24 hr mouth 1 capsule (one) time each day. Do not crush or chew. iopamidol 2021- No [id number] 50mL 50 mL, Univers (ISOVUE 11-15 [id number] Intravenou ity of 370-500 mL) 13:30: 13:31 s, ONCE, 1 [place] injection 00 :00 dose, On Medica l 50 mL Mon Branch 11/15/21 at 0845, Routine fluticasone 2021- No USE 2 UT (Flonase) 4-21 04-21 SPRAYS IN [facility] th 50 MCG/ACT 14:42: 00:00 EACH nasal spray 42 :00 NOSTRIL ONCE DAILY Multiple Yes Take by UT Vitamin 4-21 mouth. Health (multivitam 14:07: in) capsule 08 VITAMIN D Yes QD Take by UT PO 4-21 mouth 1 Health 14:07: (one) time 08 each day. Multiple 2022-0 Yes Take by UT Vitamin 4-21 mouth. Health (multivitam 14:07: in) capsule 08 VITAMIN D 2-0 Yes QD Take by UT PO 4-21 mouth 1 Health 14:07: (one) time 08 each day. Multiple 2022-0 Yes Take by UT Vitamin 4-21 mouth. Health (multivitam 14:07: in) capsule 08 VITAMIN D 2-0 Yes QD Take by UT PO 4-21 mouth 1 Health 14:07: (one) time 08 each day. Multiple 2-0 Yes Take by UT Vitamin 4-21 mouth. Health (multivitam 14:07: in) capsule 08 VITAMIN D 2-0 Yes QD Take by UT PO 4-21 mouth 1 Health 14:07: (one) time 08 each day. Multiple 2021-0 Yes Take by UT Vitamin 4-21 mouth. Health (multivitam 14:07: in) capsule 08 VITAMIN D 2-0 Yes QD Take by UT PO 4-21 mouth 1 Health 14:07: (one) time 08 each day. lisinopril 2022-0 Yes [id number] TAKE ONE UT 10 MG 3-07 (1) Health tablet 00:00: TABLET(S) 00 BY MOUTH ONCE A DAY. lisinopril 2022-0 Yes [id number] TAKE ONE UT 10 MG 3-07 (1) Health tablet 00:00: TABLET(S) 00 BY MOUTH ONCE A DAY. lisinopril 2022-0 Yes [id number] TAKE ONE UT 10 MG 3-07 (1) Health tablet 00:00: TABLET(S) 00 BY MOUTH ONCE A DAY. lisinopril 2022-0 Yes [id number] TAKE ONE UT 10 MG 3-07 (1) Health tablet 00:00: TABLET(S) 00 BY MOUTH ONCE A DAY. lisinopril 2022-0 Yes [id number] TAKE ONE UT 10 MG 3-07 (1) Health tablet 00:00: TABLET(S) 00 BY MOUTH ONCE A DAY. lisinopril 2022-0 Yes [id number] TAKE ONE UT 10 MG 3-07 (1) Health tablet 00:00: TABLET(S) 00 BY MOUTH ONCE A DAY. lisinopril 2022-0 Yes [id number] TAKE ONE UT 10 MG 3-07 (1) Health tablet 00:00: TABLET(S) 00 BY MOUTH ONCE A DAY. sotalol Yes [id number] TAKE ONE U T (Betapace) - (1) Health 80 MG 00:00: TABLET(S) tablet 00 BY MOUTH TWICE A DAY. sotalol Yes [id number] TAKE ONE U T (Betapace) 06-23 (1) Health 80 MG 00:00: TABLET(S) tablet 00 BY MOUTH TWICE A DAY. sotalol Yes [id number] TAKE ONE U T (Betapace) 06-23 (1) Health 80 MG 00:00: TABLET(S) tablet 00 BY MOUTH TWICE A DAY. sotalol Yes [id number] TAKE ONE U T (Betapace) 06-23 (1) Health 80 MG 00:00: TABLET(S) tablet 00 BY MOUTH TWICE A DAY. sotalol Yes [id number] TAKE ONE U T (Betapace) 06-23 (1) Health 80 MG 00:00: TABLET(S) tablet 00 BY MOUTH TWICE A DAY. OZEMPIC ( Yes INJECT ONE K elsey mg/dose) 2 2-03 (1) MG Seybold mg/1.5 mL 00:00: INTO THE SQ Solution 00 SKIN ONCE Pen-Injecto A WEEK. r fluticasone 2020-04 Yes USE 2 UT (Flonase) 0-28 SPRAYS IN Healt h 50 MCG/ACT 14:16: EACH nasal spray 23 NOSTRIL ONCE DAILY Multiple 2020-04 Yes Take by UT Vitamin 0-28 mouth. Health (multivitam 14:16: in) capsule 23 VITAMIN D 2020-04 Yes QD Take by UT PO 0-28 mouth 1 Health 14:16: (one) time 23 each day. pravastatin 2020-04 Yes [id number] 40mg Take 1 UT (Pravachol) 0-28 tablet (40 He alth 40 MG 00:00: mg total) tablet 00 by mouth every night. carvedilol 2020-04 Yes [id number] 25mg Q.5D Take 1 UT (Coreg) 25 0-28 tablet (25 Hea lth MG tablet 00:00: mg total) 00 by mouth 2 (two) times a day. 1/2 tablet allopurinol 2020-04 Yes [id number] 100mg QD Take 1 UT (Zyloprim) 0-28 tablet Health 100 MG 00:00: (100 mg tablet 00 total) by mouth 1 (one) time each day. pravastatin 2020-04 Yes [id number] 40mg Take 1 UT (Pravachol) 0-28 tablet (40 He alth 40 MG 00:00: mg total) tablet 00 by mouth every night. carvedilol 2020-04 Yes [id number] 25mg Q.5D Take 1 UT (Coreg) 25 0-28 tablet (25 Hea lth MG tablet 00:00: mg total) 00 by mouth 2 (two) times a day. 1/2 tablet allopurinol 2020-04 Yes [id number] 100mg QD Take 1 UT (Zyloprim) 0-28 tablet Health 100 MG 00:00: (100 mg tablet 00 total) by mouth 1 (one) time each day. pravastatin 2020-04 Yes [id number] 40mg Take 1 UT (Pravachol) 0-28 tablet (40 He alth 40 MG 00:00: mg total) tablet 00 by mouth every night. carvedilol 2020-04 Yes [id number] 25mg Q.5D Take 1 UT (Coreg) 25 0-28 tablet (25 Hea lth MG tablet 00:00: mg total) 00 by mouth 2 (two) times a day. 1/2 tablet allopurinol 2020-04 Yes [id number] 100mg QD Take 1 UT (Zyloprim) 0-28 tablet Health 100 MG 00:00: (100 mg tablet 00 total) by mouth 1 (one) time each day. pravastatin 2020-04 Yes [id number] 40mg Take 1 UT (Pravachol) 0-28 tablet (40 He alth 40 MG 00:00: mg total) tablet 00 by mouth every night. carvedilol 2020-04 Yes [id number] 25mg Q.5D Take 1 UT (Coreg) 25 0-28 tablet (25 Hea lth MG tablet 00:00: mg total) 00 by mouth 2 (two) times a day. 1/2 tablet allopurinol 2020-04 Yes [id number] 100mg QD Take 1 UT (Zyloprim) 0-28 tablet Health 100 MG 00:00: (100 mg tablet 00 total) by mouth 1 (one) time each day. pravastatin 2020-04 Yes [id number] 40mg Take 1 UT (Pravachol) 0-28 tablet (40 He alth 40 MG 00:00: mg total) tablet 00 by mouth every night. carvedilol 2020-04 Yes [id number] 25mg Q.5D Take 1 UT (Coreg) 25 0-28 tablet (25 Hea lth MG tablet 00:00: mg total) 00 by mouth 2 (two) times a day. 1/2 tablet allopurinol 2020-04 Yes [id number] 100mg QD Take 1 UT (Zyloprim) 0-28 tablet Health 100 MG 00:00: (100 mg tablet 00 total) by mouth 1 (one) time each day. pravastatin 2020-04 Yes [id number] 40mg Take 1 UT (Pravachol) 0-28 tablet (40 He alth 40 MG 00:00: mg total) tablet 00 by mouth every night. carvedilol 2020-04 Yes [id number] 25mg Q.5D Take 1 UT (Coreg) 25 0-28 tablet (25 Hea lth MG tablet 00:00: mg total) 00 by mouth 2 (two) times a day. 1/2 tablet allopurinol 2020-04 Yes [id number] 100mg QD Take 1 UT (Zyloprim) 0-28 tablet Health 100 MG 00:00: (100 mg tablet 00 total) by mouth 1 (one) time each day. pravastatin 2020-04 Yes [id number] 40mg Take 1 UT (Pravachol) 0-28 tablet (40 He alth 40 MG 00:00: mg total) tablet 00 by mouth every night. carvedilol 2020-04 Yes [id number] 25mg Q.5D Take 1 UT (Coreg) 25 0-28 tablet (25 Hea lth MG tablet 00:00: mg total) 00 by mouth 2 (two) times a day. 1/2 tablet allopurinol 2020-04 Yes [id number] 100mg QD Take 1 UT (Zyloprim) 0-28 tablet Health 100 MG 00:00: (100 mg tablet 00 total) by mouth 1 (one) time each day. levocetiriz 2020-04 Yes 5mg QD Take 5 mg U T ine (Xyzal) 0-08 by mouth 1 He alth 5 MG tablet 00:00: (one) time 00 each day. levocetiriz 2020-04- No 5mg QD Take 5 mg UT ine (Xyzal) 008 04-21 by mouth 1 H ealth 5 MG tablet 00:00: 00:00 (one) time 00 :00 each day. Carvedilol Yes [id number] 25mg Take 1 K elsey 25 MG oral 8-19 tablet (25 Sey bold Tablet 00:00: mg total) 00 by mouth 2 times daily Levocetiriz Yes 1{tbl} Take 1 Ke lsey ine 8-17 tablet by Seybold Dihydrochlo 09:11: mouth ride 58 daily (Xyzal) 2.5 MG/5ML oral Solution Misc. Yes 2{spray 2 sprays [employer] 8-17 } by does Seybold (Nasal 09:11: not apply [place] 58 route Bottle) daily does not apply Misc Multiple Yes Take by Jade Vitamin 8-17 mouth [facility] (Multivitam 09:11: ins) oral 58 Capsule Amoxicillin 2021- No [id number] 500mg Take 1 Jade 500 MG oral 8-17 -04 capsule Seyb old Capsule 00:00: 00:00 (500 mg 00 :00 total) by mouth 3 times daily Allopurinol Yes 100mg Take 1 Boris sey 100 MG oral 8-16 tablet Seybol d Tablet 00:00: (100 mg 00 total) by mouth daily Pravastatin Yes TAKE ONE K elsey Sodium 40 7-19 (1) Seybold MG oral 00:00: TABLET(S) Tablet 00 BY MOUTH ONCE A DAY AT BEDTIME. Sotalol HCl Yes 80mg Take 1 Vashti ey 80 MG oral 7-07 tablet (80 Sey bold Tablet 00:00: mg total) 00 by mouth 2 times daily Clindamycin 2021- No TAKE ONE K elsey HCl 300 MG 07-23 (1) Seybold oral 00:00: 00:00 CAPSULE(S) Capsule 00 :00 BY MOUTH EVERY EIGHT HOURS FOR 7 DAYS. Nystatin 2021- No APPLY Jade [id number] [id number] POWDER TO Seybold UNIT/GM 00:00: 00:00 AFFECTED apply 00 :00 AREA(S) externally TWICE Powder DAILY NEEDED loratadine Yes 1{tbl} QD Take 1 UT (Claritin) 3-28 tablet by Heal th 10 MG 00:00: mouth 1 tablet 00 (one) time each day. Loratadine Yes 1{tbl} Take 1 Boris sey (CLARITIN) 3-28 tablet by Seyb old 10 MG oral 00:00: mouth tablet 00 daily loratadine 2021- No 1{tbl} QD Take 1 UT (Claritin) 3-28 04-21 tablet by Hea lth 10 MG 00:00: 00:00 mouth 1 tablet 00 :00 (one) time each day. Levocetiriz 2021- No 1{tbl} Take 1 K elsey ine 3-20 06-04 tablet by Seybold Dihydrochlo 00:00: 00:00 mouth ride 5 MG 00 :00 daily oral Tablet Sotalol HCl 2021- No 1{tbl} Take 1 K elsey 80 MG oral 07-14-04 tablet by Sey bold Tablet 00:00: 00:00 mouth 2 00 :00 times daily Lisinopril Yes 40mg Take 40 mg K elsey 40 MG oral 2-10 by mouth Seybo ld Tablet 00:00: daily 00 semaglutide 2019-04 Yes INJECT ONE UT (Ozempic, 1 0-31 (1) MG Health MG/DOSE,) 2 00:00: INTO THE MG/1.5ML 00 SKIN ONCE solution A WEEK. pen-injecto r semaglutide 2019-04 Yes INJECT ONE UT (Ozempic, 1 0-31 (1) MG Health MG/DOSE,) 2 00:00: INTO THE MG/1.5ML 00 SKIN ONCE solution A WEEK. pen-injecto r semaglutide 2019-04 Yes INJECT ONE UT (Ozempic, 1 0-31 (1) MG Health MG/DOSE,) 2 00:00: INTO THE MG/1.5ML 00 SKIN ONCE solution A WEEK. pen-injecto r semaglutide 2019-04 Yes INJECT ONE UT (Ozempic, 1 0-31 (1) MG Health MG/DOSE,) 2 00:00: INTO THE MG/1.5ML 00 SKIN ONCE solution A WEEK. pen-injecto r semaglutide 2019-04 Yes INJECT ONE UT (Ozempic, 1 0-31 (1) MG Health MG/DOSE,) 2 00:00: INTO THE MG/1.5ML 00 SKIN ONCE solution A WEEK. pen-injecto r semaglutide 2019-04 Yes INJECT ONE UT (Ozempic, 1 0-31 (1) MG Health MG/DOSE,) 2 00:00: INTO THE MG/1.5ML 00 SKIN ONCE solution A WEEK. pen-injecto r semaglutide 2019-04 Yes INJECT ONE UT (Ozempic, 1 0-31 (1) MG Health MG/DOSE,) 2 00:00: INTO THE MG/1.5ML 00 SKIN ONCE solution A WEEK. pen-injecto r Immunizations Ordered Immunization Filled Immunization Date Status Commen ts Source Name Name Covid-19 Vaccine 2020-05-28 Completed Jade patel Moderna (Spikevax), 00:00:00 Mrna-lnp, Nixon Protein, Pf Covid-19 Vaccine 2020-05-28 Completed Jade patel Moderna (Spikevax), 00:00:00 Mrna-lnp, Nixon Protein, Pf Covid-19 Vaccine 2020-05-21 Completed Jade barnesld Moderna (Spikevax), 00:00:00 Mrna-lnp, Nixon Protein, Pf Influenza Virus 2019-12-09 Completed Jade Molina ybold Vaccine, age 6 00:00:00 months and up Influenza Virus 2017-01-19 Completed Jade Molina ybold Vaccine, age 6 00:00:00 months and up Tdap- (Boostrix, 2017-01-12 Completed Jade patel Adacel) 00:00:00 Influenza Virus 2016-01-20 Completed Jade Molina ybold Vaccine, age 6 00:00:00 months and up Influenza Virus 2015-01-19 Completed Jade Molina ybold Vaccine, age 6 00:00:00 months and up Influenza Virus 2014-01-15 Completed Jade Molina ybold Vaccine, age 6 00:00:00 months and up Vital Signs Vital Name Observation Time Observation Value Comments Source Systolic blood 2021-08-12 19:11:00 112 mm[Hg] [facility] pressure Diastolic blood 2021-08-12 19:11:00 71 mm[Hg] [facility] pressure Heart rate 2021-08-12 19:11:00 77 /min [facility] Body height 2021-08-12 19:11:00 157.5 cm [facility] Body weight 2021-08-12 19:11:00 117.482 kg [facility] BMI 2021-08-12 19:11:00 47.37 kg/m2 [facility] Systolic blood 2021-12-08 13:55:00 113 mm[Hg] [facility] pressure Diastolic blood 2021-12-08 13:55:00 76 mm[Hg] [facility] pressure Heart rate 2021-12-08 13:55:00 66 /min [facility] Body temperature 2021-12-08 13:55:00 36.44 Tasneem [facility] Body height 2021-12-08 13:55:00 157.5 cm [facility] Body weight 2021-12-08 13:55:00 121.383 kg [facility] BMI 2021-12-08 13:55:00 48.94 kg/m2 [facility] Body temperature 2021-11-17 15:59:00 36.39 Tasneem [facility] Body height 2021-11-17 15:59:00 157.5 cm [facility] Body weight 2021-11-17 15:59:00 122.925 kg [facility] BMI 2021-11-17 15:59:00 49.57 kg/m2 [facility] Systolic blood 2021-08-12 19:11:00 112 mm[Hg] [facility] pressure Diastolic blood 2021-08-12 19:11:00 71 mm[Hg] [facility] pressure Heart rate 2021-08-12 19:11:00 77 /min [facility] Body height 2021-08-12 19:11:00 157.5 cm [facility] Body weight 2021-08-12 19:11:00 117.482 kg [facility] BMI 2021-08-12 19:11:00 47.37 kg/m2 [facility] HEIGHT 2020-03-04 11:29:00 157.5 cm WEIGHT 2020-03-04 11:29:00 125.6 kg Systolic blood 2022-02-01 13:24:00 143 mm[Hg] [facility] pressure Diastolic blood 2022-02-01 13:24:00 90 mm[facility] Heart rate 2022-02-01 13:24:00 67 /min [facility] Respiratory rate 2022-02-01 13:24:00 20 /min [facility] Body weight 2022-02-01 13:24:[address] [facility] BMI 2022-02-01 13:24:00 49.02 kg/m2 [facility] Body height 2021-12-24 19:34:[address] [facility] Procedures Procedure Date / Time Performing Clinician Source Performed CT ABDOMEN PELVIS W 2021-11-15 13:39:30 Diane Andres [facility] CONTRAST [facility] Branch CT ABD/PELVIC EXTERNAL 2021-11-15 13:37:20 Med Aparicio [facility] STUDY A. HB CREATININE BLOOD 2021-11-15 13:16:00 Radiology [facility] XR HIPS 2 VW RIGHT 2021-11-08 13:40:00 Requisition, Paper [facility] XR LOWER EXTREMITY 2021-11-08 13:28:48 Med Aparicio [facility] EXTERNAL STUDY [facility]. [facility] PATIENT FINANCIAL 2021-11-08 13:24:21 Doctor Unassigned, [facility] POLICY [facility] NO SHOW OR MISSED 2021-11-08 13:23:57 Doctor Unassigned, [facility] APPOINTMENT POLICY [facility] ACKNOWLEDGEMENT CONSENT/REFUSAL FOR 2021-11-08 13:23:15 Doctor Unassigned, [facility] DIAGNOSIS AND TREATMENT [facility] ASSIGNMENT OF BENEFITS 2021-11-08 13:22:43 Doctor Unassigned, [facility] ECG 12-LEAD 2021-08-12 23:34:29 Sanjiv Cee [facility] Planned Activity Planned Date Details Comments Source Future Scheduled 2022-04-05 [facility] Test 13:32:12 (procedure) [code = 572312106] Future Scheduled 2022-04-05 BREAST CANCER [facility] Test 13:32:12 SCREENING [code = BREAST CANCER SCREENING] Future Scheduled 2022-04-05 COLONOSCOPY SCREENING [facility] Test 13:32:12 [code = COLONOSCOPY SCREENING] Future Scheduled 2022-04-05 SHINGLES VACCINES (1 [facility] Test 13:32:12 of 2) [code = SHINGLES VACCINES (1 of 2)] Future Scheduled 2022-04-05 COVID-19 VACCINE (5 - Me [facility] Test 13:32:12 Booster) [code = COVID-19 VACCINE (5 - Booster)] Future Scheduled 2022-04-05 INFLUENZA VACCINE [facility] Test 13:32:12 [code = INFLUENZA VACCINE] Encounters Start End Encounter Admission Attending Care Care Encounter Source Date/Time Date/Time Type Type Clinicians Facility Department ID 2022-02-22 Outpatient [facility] [id number] [place] 10:11:[address] [place] [address] 2021-02-18 Outpatient CEE, [facility] [id number] [place] 15:12:29 [facility] 2022-08-22 2022-08-22 Outpatient BONG, [facility] [id number] [place] 10:00:00 10:00:00 [facility] 2022-04-27 2022-04-27 Outpatient THERESA, [facility] [id number] [place] 09:00:00 09:00:00 [facility] 2022-03-04 2022-03-04 Outpatient JESUS JACOBS [facility] [id number] 15:29:36 15:29:36 MARISELA calero 2022-03-02 2022-03-02 Outpatient FOG_A_Provi AOSM AOSM [id number] [place] 00:00:00 00:00:00 irma [id number] [facility] 2022-02-01 2022-02-01 Office Braunre[facility] 1.2.840.1 [id number] Methodi 08:00:00 08:59:31 Visit , Med Zayas 75933.1.1 753 s t 3.430.2.7 Hospit a .3.447888 l .8 2022-02-01 2022-02-01 Outpatient [facility] [id number] [place] 00:00:00 00:00:00 , MED [address] 2022-02-01 2022-02-01 Travel 1.2.840.1 [id number] [id number] Methodi 00:00:00 00:00:[address] 3.430.2.7 0.2.7.3.698 Ho spita .3.092877 084.8 l .8 2022-01-06 2022-01-06 Telephone Orion, 1.2.840.1 [id number] Methodi 00:00:00 00:00:[address] 3.430.2.7 Hospit a .3.525340 l .8 2021-12-29 2021-12-29 Outpatient [facility] JACOBS [facility] [id number] 13:37:38 14:39:33 MARISELA calero 2021-12-24 2021-12-24 Hospital [facility] 1.2.840.1 [id number] Methodi 15:17:34 23:59:00 Encounter , Med Sweet.1.[address] 3.430.2.7 Hospit a .3.082333 l .8 2021-12-24 2021-12-24 Hospital [facility] 1.2.840.1 [id number] Methodi 15:17:12 23:59:00 Encounter , Med Sweet.1.[address] 3.430.2.7 Hospit a .3.191202 l .8 2021-12-24 2021-12-24 Office Braunreiter 1.2.840.1 [id number] Methodi 14:20:00 15:09:07 Visit , Med Sweet.1.1 047 s t 3.430.2.7 Hospit a .3.692287 l .8 2021-12-24 2021-12-24 Orders Braunreiter 1.2.840.1 [id number] Methodi 00:00:00 00:00:00 Only , Med Zayas 69137.1.1 463 s t 3.430.2.7 Hospit a .3.274639 l .8 2021-12-24 2021-12-24 Travel 1.2.840.1 1.2.058.587 [id number] Methodi 00:00:00 00:00:[address] 3.430.2.7 0.2.7.3.698 Ho spita .3.032238 084.8 l .8 2021-12-24 2021-12-24 Outpatient [facility] [id number] [place] 00:00:00 00:00:00 , MED 047 Method i 2021-12-24 2021-12-24 Outpatient [facility] [id number] [place] 00:00:00 00:00:00 , MED 464 Method i 2021-12-24 2021-12-24 Outpatient [facility] [id number] [place] 00:00:00 00:00:00 , MED 504 Method i 2021-12-15 2021-12-15 Outpatient [facility] [id number] [place] 10:45:00 10:45:00 Health 2021-12-09 2021-12-09 Outpatient FOG_A_Provi AOSM AOSM [id number] [place] 00:00:00 00:00:00 irma [id number] Orthop e dic Sports Medicin e 2021-12-09 2021-12-09 Travel 1.2.840.1 1.2.047.549 [id number] [facility] 00:00:00 00:00:[address] 3.430.2.7 0.2.7.3.698 Ho spita .3.584540 084.8 l .8 2021-12-08 2021-12-08 Office Bong, [facility] 6410 1.2.346.400 [id number] [place] 09:30:00 09:30:[address] 350.1.13.58 Health 9.2.7.2.686 [id number] 2021-12-03 2021-12-03 Outpatient JESUS JACOBS MDA MDA [id number] 10:13:07 10:13:07 MARISELA calero 2021-12-01 2021-12-01 Outpatient JESUS PIRES MDA MDA [id number] 10:21:01 23:59:00 ALZ calero 2021-12-01 2021-12-01 Outpatient JESUS PIRES MDA MDA [id number] 12:01:52 12:01:52 LAZ calero 2021-12-01 2021-12-01 Telephonic REN WOODY 6410 1.2.840.114 1 [id number] [place] 10:15:00 10:15:00 Encounter LINETTE JOHN [id number] Health [id number] 2021-11-23 2021-11-23 Telephone Garland Flores UTP 6410 1.2.840. 114 [id number] [place] 00:00:00 00:00:00 Garland Flores [id number] Health [id number] 2021-11-18 2021-11-18 Telephone Garland Flores UTP 6410 1.2.840. 114 [id number] [place] 00:00:00 00:00:00 Garland Flores [id number] Health [id number] 2021-11-17 2021-11-17 Consult Bong UTP 6410 1.2.430.136 [id number] [place] 11:00:00 12:00:47 Linette JOHN [id number] Health [id number] 2021-11-15 2021-11-15 Outpatient R RADIOLOGY [facility] [id number] Univers 07:58:15 23:59:00 ity [facility] 2021-11-15 2021-11-15 Hospital Radiology [facility] 1.2.840.114 [id number] Univers 07:58:15 23:59:00 Encounter [place] 350.1.13.10 [facility] 4.2.7.2.686 [facility] [id number] [facility] [address] 2021-11-08 2021-11-08 Outpatient R RADIOLOGY [facility] [id number] Univers 08:22:21 23:59:00 ity of [facility] 2021-11-08 2021-11-08 Hospital Radiology [facility] 1.2.840.114 [id number] Univers 08:15:00 23:59:00 Encounter [place] [id number] [facility] 4.2.7.2.686 [facility] [id number] [facility] [address] 2021-08-12 2021-08-12 Office REN Cee 6400 1.2.840.114 [id number] [place] 14:15:00 15:02:24 Visit Sanjiv JOHN [id number] Health [id number] 2021-08-12 2021-08-12 Outpatient JESUS PIRES [facility] [id number] 11:53:13 11:53:13 LAZ calero 2021-06-30 2021-06-30 Telephone Irma Marisol UTP 6400 1.2.840. 114 [id number] [place] 00:00:00 00:00:00 Marisol Solis [id number] Health 9.2.7.2.686 [id number] 1 2021-05-28 2021-05-28 Telemedici Melissa Damon 1.2.840.114 [id number] Jade 14:00:00 14:00:00 ne Alida Altman 350.1.13.13 [place] 1.2.7.2.686 [id number] 2021-05-27 2021-05-27 Outpatient JADE DAMON [id number] Jade 00:00:00 00:00:00 ALIDA Seybol d 2021-05-24 2021-05-24 Outpatient ANIKA MONIQUE JADE VAUGHN [id number] Jade 00:00:00 00:00:00 Seybol d 2021-02-18 2021-02-18 Office REN Cee 6400 1.2.840.114 [id number] [place] 13:33:33 15:13:38 Visit Sanjiv SUBRAMANIAN [id number] Health 9.2.7.2.686 [id number] 2020-12-31 2020-12-31 Outpatient YOVANY MELISSA VAUGHN [id number] Jade 08:00:00 08:00:00 Seybol d 2020-12-29 2020-12-29 Outpatient YOVANY, MELISSA VAUGHN [id number] Jade 08:00:00 08:00:00 Seybol d 2020-12-25 2020-12-25 Outpatient YOVANYMELISSA [id number] Jade 16:00:00 16:00:00 Seybol d 2020-12-24 2020-12-24 Outpatient JADE DAMON [id number] Jade 00:00:00 00:00:00 ALIDA Seybol d 2020-12-24 2020-12-24 Telephone REN Cee 6400 1.2.840.114 [id number] [place] 00:00:00 00:00:00 Sanjiv SUBRAMANIAN [id number] Health 9.2.7.2.686 [id number] 2020-12-18 2020-12-18 Outpatient JADE DAMON [id number] Jade 15:30:00 15:30:00 ALIDA Seybol d 2020-12-10 2020-12-10 Outpatient JADE DAMON [id number] Jade 13:30:00 13:30:00 ALIDA Seybol d 2020-12-08 2020-12-08 Outpatient JADE DAMON [id number] Jade 09:00:00 09:00:00 ALIDA Seybol d 2020-11-23 2020-11-23 Telephone REN Cee 6400 1.2.840.114 [id number] [place] 00:00:00 00:00:[address] 350.1.13.58 Health 9.2.7.2.686 [id number] 2020-11-23 2020-11-23 Telephone REN Cee 6400 1.2.840.114 [id number] 00:00:00 00:00:[address] [id number] [id number] [id number] 2020-03-04 2020-03-04 Outpatient JESUS MÉNDEZ MDA MDA [id number] 12:00:00 23:59:00 JEAN CARLOS calero 2020-03-04 2020-03-04 Outpatient JESUS PIRES MDA MDA [id number] 10:49:04 11:52:36 LAZ calero 2020-03-04 2020-03-04 Outpatient JESUS PIRES MDA MDA [id number] 09:51:32 09:51:32 LAZ calero Results Test Description Test Time Test Comments Results Result Comments Source POCT CREATININE 2021-11-16 02:51:44 Test Item Value Reference Range Interpretation Comme nts POCT Creatinine (test code = [id number]) 0.7 mg/dL 0.5-1.1 Lab Interpretation (test code = 83822-0) Normal [facility]
[2022-04-09] MEDS ORDERED: MAGNESIUM SULFATE 1 gm IVPB 1 GM/100 ML BAG IV ONE (14:25)
[2022-04-09] MEDS ORDERED: carvediloL 6.25 MG TAB ONE (14:25)
[2022-04-09 14:34] LABS: Absolute Lymphocytes (CBC) 1.7 K/uL (0.7-4.9); Hematocrit 45.3 % (36.0-45.0); Lymphocytes % 22.1 % (15.3-44.8); MCV 91.1 fL (80-100); RBC Red Blood Cell Count 4.98 M/uL (3.86-4.86)
--- NOTE | 2022-04-09 15:31 | RAD REPORT ---
EXAM DESCRIPTION: Shirin Single View04/09/2022 3:11 pm CLINICAL HISTORY: Palpitations COMPARISON: 2015 FINDINGS: The lungs appear clear of acute infiltrate. The heart is normal size IMPRESSION: No acute abnormalities displayed
[2022-04-09 15:41] LABS: Albumin 3.5 g/dL (3.4-5.0); Bilirubin Direct 0.2 mg/dL (0-0.2); Bilirubin Total 0.6 mg/dL (0.2-1.0); Potassium 3.5 mmol/L (3.5-5.1); Thyroid Stimulating Hormone 0.657 uIU/mL (0.358-3.740); Troponin High Sensitivity 13.4 pg/mL (<58.9)
[2022-04-09 16:20] LABS: Protime INR 0.87
[2022-04-09] MEDS ORDERED: SOTALOL HCL 80 MG TAB ONE (16:26)
--- NOTE | 2022-04-09 17:16 | ER ---
Nurse's Notes [facility] Name: Gretchen Galarza Age: 52 yrs Sex: Female : 1970 Arrival Date: 04/09/2022 Time: 14:01 Bed 5 Private MD: Diagnosis: Persistent atrial fibrillation-with RVR Presentation: 04/09 14:05 Chief complaint: EMS states: they were called out at about 1pm for reports of heart hb palpitations, shortness of breath, and chest pain. client was in afib RVR 150-190bpm. 25mg of cardizem given en route. client then converted to afib 70-100bpm. Coronavirus screen: Vaccine status: Patient reports receiving the 2nd dose of the covid vaccine. At this time, the client does not indicate any symptoms associated with coronavirus-19. Ebola Screen: No symptoms or risks identified at this time. Initial Sepsis Screen: Does the patient meet any 2 criteria? HR > 90 bpm. No. Patient's initial sepsis screen is negative. Does the patient have a suspected source of infection? No. Patient's initial sepsis screen is negative. Risk Assessment: Do you want to hurt yourself or someone else? Patient reports no desire to harm self or others. Onset of symptoms was April 09, 2022 at 13:00. 14:05 Method Of Arrival: EMS: [facility] hb 14:05 Acuity: VIKI 2 hb Triage Assessment: 14:08 General: Appears in no apparent distress. comfortable, Behavior is calm, cooperative, hb appropriate for age. Pain: Denies pain. EENT: No signs and/or symptoms were reported regarding the EENT system. Neuro: Sherman Agitation-Sedation Scale (RASS): 0 - Alert and Calm Level of Consciousness is awake, alert, obeys commands, Oriented to person, place, time, situation, Appropriate for age. Cardiovascular: Reports chest pain, palpitations, shortness of breath, Heart tones S1 S2 present Capillary refill < 3 seconds Rhythm is atrial fibrillation. Respiratory: Airway is patent Trachea midline Respiratory effort is even, unlabored, Respiratory pattern is regular, symmetrical, Breath sounds are clear bilaterally. GI: No signs and/or symptoms were reported involving the gastrointestinal system. : No signs and/or symptoms were reported regarding the genitourinary system. Derm: No signs and/or symptoms reported regarding the dermatologic system. Skin is intact, Skin is pink, warm \T\ dry. Musculoskeletal: No signs and/or symptoms reported regarding the musculoskeletal system. Circulation, motion, and sensation intact. Capillary refill < 3 seconds, Range of motion: intact in all extremities. Historical: - Allergies: 14:04 No Known Drug Allergies; hb - Home Meds: 14:04 allopurinol 100 mg Oral tab 1 tab once daily [Active]; carvedilol 12.5 mg Oral tab 1 hb tab 2 times per day [Active]; pravastatin 40 mg Oral tab 1 tab once daily [Active]; lisinopril 10 mg Oral tab 1 tab once daily [Active]; - PMHx: 14:04 PCOS; Hypertension; Hypercholesterolemia; Diabetes - NIDDM; cardiomyopathy; hb - PSHx: 14:04 Cardiac Ablation; section; I\T\D of staph infection right arm; uterine ablation; hb - Family history:: not pertinent. - Hospitalizations: : No recent hospitalization is reported. Screenin:10 [facility] ED Fall Risk Assessment (Adult) History of falling in the last 3 months, hb including since admission No falls in past 3 months (0 pts) Confusion or Disorientation No (0 pts) Intoxicated or Sedated No (0 pts) Impaired Gait No (0 pts) Mobility Assist Device Used No (0 pt) Altered Elimination No (0 pt) Score/Fall Risk Level 0 - 2 = Low Risk. Abuse screen: Denies threats or abuse. Denies injuries from another. Nutritional screening: No deficits noted. Tuberculosis screening: No symptoms or risk factors identified. 22:10 Humpty Dumpty Scale Fall Assessment Tool (age< 18yrs) Age 13 years and above (1 pt). ll3 Fall Risk No fall in past 12 months (0 pts). No secondary diagnosis (0 pts). IV access (20 points). Ambulatory Aid- None/Bed Rest/Nurse Assist (0 pts). Gait- Normal/Bed Rest/Wheelchair (0 pts) Mental Status- Oriented to own ability (0 pts). Total Cruz Fall Scale indicates No Risk (0-24 pts). Assessment: 14:09 Reassessment: please see triage assessment. hb 15:09 Reassessment: Patient appears in no apparent distress at this time. No changes from hb previously documented assessment. Patient and/or family updated on plan of care and expected duration. Pain level reassessed. Patient is alert, oriented x 3, equal unlabored respirations, skin warm/dry/pink. 16:09 Reassessment: Patient appears in no apparent distress at this time. No changes from kc6 previously documented assessment. Patient and/or family updated on plan of care and expected duration. Pain level reassessed. Patient is alert, oriented x 3, equal unlabored respirations, skin warm/dry/pink. 17:09 Reassessment: Patient appears in no apparent distress at this time. No changes from kc6 previously documented assessment. Patient and/or family updated on plan of care and expected duration. Pain level reassessed. Patient is alert, oriented x 3, equal unlabored respirations, skin warm/dry/pink. 18:09 Reassessment: Patient appears in no apparent distress at this time. No changes from kc6 previously documented assessment. Patient and/or family updated on plan of care and expected duration. Pain level reassessed. Patient is alert, oriented x 3, equal unlabored respirations, skin warm/dry/pink. Vital Signs: 14:05 BP 125 / 70; Pulse 110; Resp 18 S; Pulse Ox 100% on R/A; Weight 123.38 kg (R); Height 5 hb ft. 2 in. (157.48 cm) (R); Pain 0/10; 14:59 BP 100 / 67; Pulse 119; Resp 18 S; Pulse Ox 100% on R/A; hb 15:49 BP 141 / 81; Pulse 136; Resp 17 S; Pulse Ox 98% on R/A; hb 18:27 BP 135 / 95; Pulse 128; Resp 14 S; Pulse Ox 97% on R/A; kc6 21:00 BP 137 / 76; Pulse 118; Resp 19 S; Pulse Ox 99% on R/A; aa9 21:53 BP 110 / 86; Pulse 131; Resp 20 S; Pulse Ox 99% on R/A; aa9 14:05 Body Mass Index 49.75 (123.38 kg, 157.48 cm) hb ED Course: 14:01 Patient arrived in ED. rn 14:01 Heath Olvera MD is Attending Physician. rn 14:04 Tiffanie Armas, MEGHA is Primary Nurse. hb 14:08 Triage completed. hb 14:10 Arm band placed on. hb 14:10 Patient has correct armband on for positive identification. Bed in low position. Call hb light in reach. Side rails up X2. Adult w/ patient. 14:57 Inserted saline lock: 22 gauge in right antecubital area, using aseptic technique. hb Maintain EMS IV. Dressing intact. Good blood return noted. Site clean \T\ dry. Gauge \T\ site: 20G LAC. 15:13 XRAY Chest (1 view) In Process Unspecified. EDMS 17:54 SARS RAPID Sent. kc6 17:56 initiated a transfer with Sol from the [facility]. eb 17:56 connected the pack room operator air traffic control operator for Dr. Valdovinos with Dr. Olvera for patient eb transfer consultation. 20:54 Pt accepted for transfer by Radames Tomas, per Rachana Pearson. wm 22:09 No provider procedures requiring assistance completed. Patient transferred, IV remains ll3 in place. Administered Medications: 14:35 Drug: Coreg (carvedilol) 12.5 mg Route: PO; hb 15:35 Follow up: Response: No adverse reaction; Cardiac rhythm is unchanged hb 14:56 Drug: Magnesium Sulfate 1 grams Route: IVPB; Infused Over: 1 hrs; Site: right hb antecubital; 16:05 Follow up: Response: No adverse reaction; IV Status: Completed infusion; IV Intake: 50mlhb 16:22 CANCELLED (Duplicate Order): Cardizem (diltiazem) 20 mg IVP once; Over 2 minutes rn 16:30 Drug: Sotalol 80 mg Route: PO; kc6 18:28 Follow up: Response: No adverse reaction kc6 20:02 Drug: Lovenox (enoxaparin) 100 mg Route: Sub-Q; Site: abdomen; ll3 22:11 Follow up: Response: No adverse reaction ll3 20:02 Drug: Lisinopril 5 mg Route: PO; ll3 22:11 Follow up: Response: No adverse reaction ll3 20:02 Not Given (Physicians discressionn): Lopressor (metoprolol) 2.5 mg IVP once; Hold for ll3 SBP <100 or HR <60. 20:02 Drug: Lopressor (metoprolol) 2.5 mg Route: IVP; Site: right antecubital; ll3 22:11 Follow up: Response: No adverse reaction ll3 Medication: 22:10 VIS not applicable for this client. ll3 Intake: 16:05 IV: 50ml; Total: 50ml. Outcome: 17:15 ER care complete, transfer ordered by . rn 22:09 Transferred by ground EMS to [facility], Transfer form completed. X-rays sent ll3 w/ patient. 22:09 Condition: stable 22:09 Discharge instructions given to family, Instructed on the need for transfer, Demonstrated understanding of instructions. 22:11 Patient left the ED. ll3 Signatures: Dispatcher [employer] EDMS Heath Olvera MD MD rn Baxter, Heather, RN RN Michelle Meade Wendy wm Loubet, Lynsea RN RN ll3 Gracia Curran RN RN aa9 Micki Contreras RN RN kc6
--- NOTE | 2022-04-09 17:16 | EDPHYS ---
Physician Documentation [facility] Name: Gretchen Galarza Age: 52 yrs Sex: Female : 1970 Arrival Date: 04/09/2022 Time: 14:01 Bed 5 Private MD: ED Physician Heath Olvera HPI: 04/09 14:31 This 52 yrs old Female presents to ER via EMS with complaints of palpitations. rn 14:31 The patient presents with a history of heart racing. Context: The symptoms occur at rn rest. Onset: The symptoms/episode began/occurred 1 hour(s) ago. Duration: The patient or guardian reports a single episode, that is still ongoing. Modifying factors: The symptoms are aggravated by nothing. The symptoms are alleviated by diltiazem. Associated signs and symptoms: Pertinent negatives: chest pain, fever, syncope. Severity of symptoms: At their worst the symptoms were moderate in the emergency department the symptoms have improved. The patient has experienced similar episodes in the past. The patient has not recently seen a physician. Pt reports hx of afib, was eating and felt heart racing, no syncope or chest pain. HR in 180s per EMS, given 25 mg diltiazem with HR down near 100. Feels much better but still feels HR is irregular. Pt states has had ablation in past but this happens "monthly". Takes coreg. . Historical: - Allergies: 14:04 No Known Drug Allergies; hb - Home Meds: 14:04 allopurinol 100 mg Oral tab 1 tab once daily [Active]; carvedilol 12.5 mg Oral tab 1 hb tab 2 times per day [Active]; pravastatin 40 mg Oral tab 1 tab once daily [Active]; lisinopril 10 mg Oral tab 1 tab once daily [Active]; - PMHx: 14:04 PCOS; Hypertension; Hypercholesterolemia; Diabetes - NIDDM; cardiomyopathy; hb - PSHx: 14:04 Cardiac Ablation; section; I\\T\\D of staph infection right arm; uterine ablation; hb - Family history:: not pertinent. - Hospitalizations: : No recent hospitalization is reported. ROS: 14:31 Constitutional: Negative for fever, chills, and weight loss, Eyes: Negative for injury, rn pain, redness, and discharge, Neck: Negative for injury, pain, and swelling, Cardiovascular: Negative for chest pain, and edema, Respiratory: Negative for shortness of breath, cough, wheezing, and pleuritic chest pain, Abdomen/GI: Negative for abdominal pain, nausea, vomiting, diarrhea, and constipation, Back: Negative for injury and pain, MS/Extremity: Negative for injury and deformity, Skin: Negative for injury, rash, and discoloration, Neuro: Negative for headache, weakness, numbness, tingling, and seizure. Exam: 14:31 Constitutional: This is a well developed, well nourished patient who is awake, alert, rn and in no acute distress. Head/Face: Normocephalic, atraumatic. Cardiovascular: Tachycardic, irregular Respiratory: No increased work of breathing, no retractions or nasal flaring. Skin: Warm, dry MS/ Extremity: Pulses equal, no cyanosis. Neuro: Awake and alert, GCS 15 16:57 ECG was reviewed by the Attending Physician. rn Vital Signs: 14:05 BP 125 / 70; Pulse 110; Resp 18 S; Pulse Ox 100% on R/A; Weight 123.38 kg (R); Height 5 hb ft. 2 in. (157.48 cm) (R); Pain 0/10; 14:59 BP 100 / 67; Pulse 119; Resp 18 S; Pulse Ox 100% on R/A; hb 15:49 BP 141 / 81; Pulse 136; Resp 17 S; Pulse Ox 98% on R/A; hb 18:27 BP 135 / 95; Pulse 128; Resp 14 S; Pulse Ox 97% on R/A; kc6 21:00 BP 137 / 76; Pulse 118; Resp 19 S; Pulse Ox 99% on R/A; aa9 21:53 BP 110 / 86; Pulse 131; Resp 20 S; Pulse Ox 99% on R/A; aa9 14:05 Body Mass Index 49.75 (123.38 kg, 157.48 cm) hb MDM: 14:02 Patient medically screened. rn 16:30 ED course: Consulted with Dr. Donahue, recommends sotalol 80mg and if needed can follow rn with IV metoprolol. Updated patient, comfortable with plan, especially given that she is on coreg and sotalol at home.. 17:13 Differential diagnosis: arrythmia, dehydration, stress disorder. Data reviewed: vital rn signs, nurses notes, lab test result(s), EKG, and as a result, I will admit patient. Counseling: I had a detailed discussion with the patient and/or guardian regarding: the historical points, exam findings, and any diagnostic results supporting the discharge/admit diagnosis, lab results, the need for further work-up and treatment in the hospital, the need to transfer to another facility, for higher level of care, patient request. Response to treatment: the patient's symptoms have mildly improved after treatment, and as a result, I will admit patient. Admission orders: after a detailed discussion of the patient's condition and case, the admit orders are written by me. 17:14 ED course: Spoke with patient regarding admission, she [facility] to be transferred [facility], her supervisor pre wave Dr. Cee is there, and her ablation was there, she wants to go back over there. Transfer initiated. . 04/09 14:02 Order name: Basic Metabolic Panel; Complete Time: 15:44 04/09 14:02 Order name: CBC with Diff; Complete Time: 15:33 04/09 14:02 Order name: LFT's; Complete Time: 15:44 rn 04/09 14:02 Order name: Magnesium; Complete Time: 15:44 04/09 14:02 Order name: NT PRO-BNP; Complete Time: 15:44 rn 04/09 14:02 Order name: PT-INR; Complete Time: 16:22 rn 04/09 14:02 Order name: Troponin HS; Complete Time: 15:44 04/09 14:02 Order name: XRAY Chest (1 view); Complete Time: 15:33 rn 04/09 14:02 Order name: TSH; Complete Time: 15:44 rn 17 14:02 Order name: T4 Free; Complete Time: 15:44 rn 17 17:19 Order name: SARS RAPID; Complete Time: 19:46 eb 04/09 14:02 Order name: EKG; Complete Time: 14:03 rn 04/09 14:02 Order name: Cardiac monitoring; Complete Time: 14:05 rn 04/09 14:02 Order name: EKG - Nurse/Tech; Complete Time: 14:05 04/09 14:02 Order name: IV Saline Lock; Complete Time: 14:05 rn 04/09 14:02 Order name: Labs collected and sent; Complete Time: 14:35 rn 04/09 14:02 Order name: O2 Per Protocol; Complete Time: 14:05 rn 04/09 14:02 Order name: O2 Sat Monitoring; Complete Time: 14:05 rn 04/09 14:41 Order name: Labs - recollect needed: recollect blue and green ; Complete Time: 15:10 eb EC:57 Rate is 101 beats/min. Rhythm is irregularly irregular. QRS Duncan is Normal. QRS rn interval is normal. QT interval is normal. No Q waves. T waves are Normal. No ST changes noted. Clinical impression: Atrial Fibrillation. Interpreted by me. Reviewed by me. Administered Medications: 14:35 Drug: Coreg (carvedilol) 12.5 mg Route: PO; hb 15:35 Follow up: Response: No adverse reaction; Cardiac rhythm is unchanged hb 14:56 Drug: Magnesium Sulfate 1 grams Route: IVPB; Infused Over: 1 hrs; Site: right hb antecubital; 16:05 Follow up: Response: No adverse reaction; IV Status: Completed infusion; IV Intake: 50mlhb 16:22 CANCELLED (Duplicate Order): Cardizem (diltiazem) 20 mg IVP once; Over 2 minutes rn 16:30 Drug: Sotalol 80 mg Route: PO; kc6 18:28 Follow up: Response: No adverse reaction kc6 20:02 Drug: Lovenox (enoxaparin) 100 mg Route: Sub-Q; Site: abdomen; ll3 22:11 Follow up: Response: No adverse reaction ll3 20:02 Drug: Lisinopril 5 mg Route: PO; ll3 22:11 Follow up: Response: No adverse reaction ll3 20:02 Not Given (Physicians discressionn): Lopressor (metoprolol) 2.5 mg IVP once; Hold for ll3 SBP <100 or HR <60. 20:02 Drug: Lopressor (metoprolol) 2.5 mg Route: IVP; Site: right antecubital; ll3 22:11 Follow up: Response: No adverse reaction ll3 Disposition Summary: 04/09/22 17:15 Transfer Ordered Transfer Location: [facility] rn Reason: Higher level of care rn Condition: Stable rn Problem: an acute exacerbation rn Symptoms: have improved rn Accepting Physician: (04/09/22 22:11) jet3 Diagnosis - Persistent atrial fibrillation - with RVR rn Forms: - Medication Reconciliation Form rn - SBAR form rn Signatures: Dispatcher [employer] EDFidel Webster MD MD cha Nieto, Roman, MD MD rn Baxter, Heather RN Michelle Escamilla Lynsea RN RN ll3 Micki Contreras RN RN kc6 Corrections: (The following items were deleted from the chart) 14:33 14:31 Pt reports hx of afib, was eating and felt heart racing, no syncope or chest rn pain. HR in 180s per EMS, given 25 mg diltiazem with HR down near 100. Feels much better but still feels HR is irregular. . rn 16:22 16:20 Cardizem (diltiazem) 20 mg IVP once; Over 2 minutes ordered. rn rn 22:11 17:15 rn ll3
[2022-04-09 18:25] LABS: SARS-CoV-2 Antigen Rapid Res Negative (Negative)
[2022-04-09] MEDS ORDERED: ENOXAPARIN 100 MG/ML SYR SQ ONE (19:53)
[2022-04-09] MEDS ORDERED: METOPROLOL TARTRATE 5 MG/5 ML INJ IV ONE (19:53)
[2022-04-09] MEDS ORDERED: lisinopriL 5 MG TAB ONE (19:53)
[2022-04-09 22:42] VITALS: O2SAT 99
[2022-04-09 22:43] VITALS: BP 110/86
--- NOTE | 2022-04-10 15:50 | EKG ---
Test Date: 2022-04-09 Test Time: 13:58:20 Hospice Team Lead: CHELITA MEASUREMENT RESULTS: Intervals: Rate: 101 [place]: QRSD: 90 QT: 372 QTc: 482 [place]: P: [place]: QRS: 30 T: 21 INTERPRETIVE STATEMENTS: Atrial fibrillation with rapid ventricular response Low voltage QRS Abnormal ECG Compared to ECG 08/06/2015 22:47:15 Low QRS voltage now present Sinus rhythm no longer present Electronically Signed On 04-10-22 15:49:27 MESSENGER FLOORPERSON by Justin Donahue
== END 2022-04-09 22:11 | disposition short-term general hospital (02) ==
LOC: ER 13:55
DX: I48.19 Other persistent atrial fibrillation (principal); I10 Essential (primary) hypertension; E11.9 Type 2 diabetes mellitus without complications; E78.00 Pure hypercholesterolemia, unspecified; Z20.822 Contact with and (suspected) exposure to COVID-19
CPT/HCPCS: 93005; 85025; 80048; 36415; 83735; 85610; 80076; 84443; 84484; 84439; 83880; 71045; 87811; J3475; J1650; 96365; 96372; 96375; 99285

== ENCOUNTER 2024-11-28 00:23 | Emergency (ER) | payer OTHER ==
[2024-11-28] MEDS ORDERED: METOPROLOL TARTRATE 5 MG/5 ML INJ IV ONE ×3 (01:32→02:09)
[2024-11-28] MEDS ORDERED: NA CHLORIDE 0.9% 500 ML ONE (01:33)
[2024-11-28] MEDS ORDERED: MAGNESIUM SULFATE 1 gm IVPB 1 GM/100 ML BAG IV ONE ×2 (01:33→03:22)
[2024-11-28 01:52] LABS: Absolute Lymphocytes (CBC) 2.6 K/uL (0.7-4.9); Hematocrit 46.1 % (36.0-45.0); Hemoglobin 15.8 g/dL (12.0-15.0); MCH 30.5 pg (27.0-35.0); MCHC 34.3 g/dL (32.0-36.0); MCV 89.1 fL (80-100); MPV 7.9 fL (7.6-11.3); Nucleated RBC Absolute Count 0.0 (0-0); Nucleated Red Blood Cells % 0.3 % (0-0); RBC Red Blood Cell Count 5.18 M/uL (3.86-4.86); White Blood Count 10.10 thou/uL (4.3-10.9)
[2024-11-28 01:57] LABS: Anion Gap 7.8 mEq/L (5.0-15.0); BUN Blood Urea Nitrogen 13.0 mg/dL (7-18); Glucose Level 147.0 mg/dL (74-106); Magnesium 1.9 mg/dL (1.6-2.4); NT PRO-BNP 101.0 pg/mL (<125); Potassium 3.8 mEq/L (3.5-5.1); Troponin High Sensitivity 11.0 pg/mL (<58.9)
[2024-11-28] MEDS ORDERED: METOPROLOL TAR 25 MG TAB ONE ×2 (02:09→03:22)
[2024-11-28 02:34] LABS: PT Prothrombin Time 13.2 SECONDS (10-13.0); Protime INR 1.17
[2024-11-28] MEDS ORDERED: MORPHINE 4 MG/ML SYR ONE (04:23)
[2024-11-28] MEDS ORDERED: ONDANSETRON 4 MG/2 ML VIAL ONE (04:23)
--- NOTE | 2024-11-28 06:02 | EDPHYS ---
Physician Documentation [facility] Name: Gretchen Galarza Age: 54 yrs Sex: Female : 1970 Arrival Date: 11/28/2024 Time: 00:23 Bed 3 Private MD: ED Physician Heath Olvera HPI: 11/28 01:24 This 54 yrs old Female presents to ER via Ambulatory with complaints of High Blood rn Pressure, Irregular heart rate. 01:24 Patient reports has had productive cough for the last few days, put on amoxicillin by rn physician, lisa felt flushing and palpitations. Patient has a history of atrial fibrillation. Takes sotalol. Sotalol recently increased. States was late taking her sotalol tonight but took it at about 10 or 10:30 PM. Denies chest pain or shortness of breath.. Historical: - Allergies: 01:20 anything with alcohol in it; cp4 - Home Meds: 02:21 allopurinol 100 mg Oral tab 1 tab once daily [Active]; pravastatin 40 mg Oral tab 1 tab cp4 once daily [Active]; Eliquis 5 mg oral tablet 1 tab twice a day [Active]; lisinopril 10 mg Oral tab 1 tab once daily [Active]; sotalol 120 mg oral tablet 1 tab 2 times per day [Active]; amoxicillin 500 mg oral capsule 1 cap 3 times per day [Active]; buspirone 5 mg Oral tablet 1 tab 2 times per day [Active]; carvedilol 25 mg oral tablet 1 tab 2 times per day [Active]; levocetirizine 5 mg Oral tab 1 tab once daily [Active]; Wegovy subcutaneous [Active]; Align Dualbiotic 500 million cell-1.25 gram oral tablet,chewable daily [Active]; D3-2000 50 mcg (2,000 unit) oral capsule 1 cap daily [Active]; fluticasone propionate 50 mcg/actuation intranasal spray, suspension 1 spray daily [Active]; - PMHx: 01:20 cardiomyopathy; Diabetes - NIDDM; Hypercholesterolemia; Hypertension; PCOS; cp4 - PSHx: 01:20 Cardiac Ablation; section; I\T\D of staph infection right arm; uterine ablation; cp4 - Immunization history:: Adult Immunizations up to date. - Infectious Disease History:: Denies. - Social history:: Smoking status: Patient denies any tobacco usage or history of. - Family history:: not pertinent. - Hospitalizations: : No recent hospitalization is reported. ROS: 01:24 Constitutional: Negative for fever, chills, and weight loss, Cardiovascular: Positive rn for palpitations and heart racing Respiratory: Positive for cough, negative for shortness of breath Abdomen/GI: Negative for abdominal pain, nausea, vomiting, diarrhea, and constipation, MS/Extremity: Negative for injury and deformity, Skin: Negative for injury, rash, and discoloration, Neuro: Negative for headache, weakness, numbness, tingling, and seizure, Exam: 01:24 Constitutional: This is a well developed, well nourished patient who is awake, alert, rn and in no acute distress. Cardiovascular: Tachycardic, irregular. Respiratory: Speaking full sentences, unlabored. Neuro: Awake and alert, GCS 15 05:09 ECG was reviewed by the Attending Physician. rn Vital Signs: 01:19 BP 132 / 87; Pulse 167; Resp 18; Temp 98; Pulse Ox 99% ; Weight 127.01 kg; Height 5 ft. cp4 2 in. ; Pain 0/10; 01:23 BP 128 / 91; Pulse 182; Resp 20; Pulse Ox 99% on R/A; Pain 0/10; tb4 01:44 Pulse 161; Pulse Ox 100% on R/A; Pain 0/10; tb4 02:15 BP 126 / 107; Pulse 137; Resp 18; Pulse Ox 98% ; cp4 03:19 BP 107 / 93; Pulse 150; Resp 20; Pulse Ox 95% on R/A; Pain 0/10; tb4 04:20 BP 116 / 76; Pulse 152; Resp 20; Pulse Ox 99% on R/A; Pain 0/10; tb4 04:50 BP 124 / 78; Pulse 162; Resp 19; Pulse Ox 99% on R/A; lg3 04:57 BP 131 / 87; Pulse 96; Resp 16 S; Pulse Ox 98% on 2 lpm NC; lg3 05:32 BP 113 / 81; Pulse 87; rn 06:55 BP 119 / 86; Pulse 84; Resp 17; Temp 98; Pulse Ox 14% ; Pain 0/10; bm8 01:19 Body Mass Index 51.21 (127.01 kg, 157.48 cm) cp4 01:19 Pain Scale: Adult cp4 01:23 Pain Scale: Adult tb4 01:44 Pain Scale: Adult tb4 03:19 Pain Scale: Adult tb4 04:20 Pain Scale: Adult tb4 06:55 Pain Scale: Adult bm8 Tiona Coma Score: 06:55 Eye Response: spontaneous(4). Motor Response: obeys commands(6). Verbal Response: bm8 oriented(5). Total: 15. Procedures: 04:56 Cardioversion: (synchronized) for treatment of A fib, with 150 joules X 1. Post international accountant rhythm is sinus rhythm, the patient tolerated the procedure well. Procedural sedation: Pre-procedure assessment: the patient has been NPO 8 hour(s) prior to arrival, ASA physical classification: I - healthy, no underlying organic disease, Airway assessment: able to hyperextend neck, able to maintain airway, can open mouth without difficulty, Monitoring during procedure: court monitor, continuous pulse oximetry, nurse at bedside at all times, Medications employed: Propofol, 30 mg, Alternatives to procedural sedation discussed Post-procedure assessment: the patient is mildly sedated, Respiratory status: even and unlabored, a reversal agent was not used. MDM: 00:28 Medical Screening Exam initiated rn 04:15 ED course: Patient with several blood pressures under 100, heart rate still 160s. Spoke rn with patient, is too early to redose the sotalol, dangerous to add amiodarone at this point and beta-blockers with magnesium not changing much. After discussion with patient decision made to perform synchronized cardioversion under sedation given persistent hypotension and lack of improvement of symptoms. Patient has not stable enough for transfer and she has now been in A-fib RVR for 4 hours. Patient states has been compliant with her Eliquis and has not missed any doses. Patient has acute onset A-fib RVR, started just prior to arrival and compliant with Eliquis, will proceed with synchronized cardioversion for persistent hypotension. 04:57 Differential diagnosis: Atrial fibrillation with rapid ventricular rate. Data reviewed: rn vital signs, nurses notes, old medical records, lab test result(s), EKG, radiologic studies, plain films, and as a result, I will. Consideration of Admission/Observation Escalation of care including admission/observation considered. Independent interpretation of the following test(s) in the Emergency Department EKG: See my EKG interpretation above X-Ray: My interpretation is Chest x-ray images negative for pneumonia or pneumothorax per my interpretation. Care significantly affected by the following chronic conditions: Diabetes, Hypertension, Atrial fibrillation. Counseling: I had a detailed discussion with the patient and/or guardian regarding the historical points, exam findings, and any diagnostic results supporting the discharge/admit diagnosis, lab results, radiology results. Response to treatment: the patient's symptoms have markedly improved after treatment, the patient's symptoms have resolved after treatment, the patient's condition has returned to base line. 06:00 ED course: Pt back to baseline, feels much better, is back in sinus and stable. Workup rn grossly negative without electrolyte problems and troponin negative. No ischemia seen on ECG. Patient will follow-up with her life advisor for further recommendations. Her life advisor just increase her sotalol and told her to continue that dose as well as her Eliquis. She will call her life advisor for close follow-up today when office opens.. 06:52 ED course: Approximately 1 hour prior to discharge I heard a sound come from patient's rn room, I immediately responded and was informed that patient may have been accidentally shocked. I was not in the room when it happened and not sure the exact details. I was told that the nurse was checking defibrillator machine and may have delivered a small shock accidentally while doing standard procedure checklist on machine as she did not know that patient was still hooked up to machine for continued monitoring and chance that she went back into afib with rvr. Patient expressed some discomfort but states was brief and there were no signs of ectopy on monitor or relapse of afib. Patient quickly returned to baseline without complaints. Patient monitored for another hour and is doing well, still no complaints. Denies chest pain/dyspnea/palpitations. Patient states she believes was an accident and not intentional. . 11/28 00:29 Order name: Basic Metabolic Panel; Complete Time: rn 11/28 00:29 Order name: CBC with Diff; Complete Time: rn 11/28 00:29 Order name: Magnesium; Complete Time: : rn 11/28 00:29 Order name: NT PRO-BNP; Complete Time: : rn 11/28 00:29 Order name: PT-INR; Complete Time: : rn 11/28 00:29 Order name: Troponin HS; Complete Time: 02:53 rn 11/28 00:29 Order name: XRAY Chest (1 view) rn 11/28 00:29 Order name: EKG; Complete Time: rn 11/28 00:29 Order name: Cardiac monitoring; Complete Time: rn 11/28 00:29 Order name: EKG - Nurse/Tech; Complete Time: rn 11/28 00:29 Order name: IV Saline Lock; Complete Time: rn 11/28 00:29 Order name: Labs collected and sent; Complete Time: rn 11/28 00:29 Order name: O2 Per Protocol; Complete Time: rn 11/28 00:29 Order name: O2 Sat Monitoring; Complete Time: rn EC:09 Rate is 100 beats/min. Rhythm is regular. QRS [place] is Normal. GA interval is normal. rn QRS interval is normal. No Q waves. T waves are Normal. No ST changes noted. Clinical impression: NSR w/ Non-specific ST/T Changes. Interpreted by me. Reviewed by me. Administered Medications: 01:43 Drug: Metoprolol IVP 5 mg IVP every 5 minutes; Hold for SBP < 100 or HR < 60. x3 Route: tb4 IVP; Site: left antecubital; 01:43 Drug: Magnesium Sulfate IVPB 1 grams IVPB once over 1 hrs Route: IVPB; Infused Over: 1 tb4 hrs; Site: left antecubital; 02:57 Follow up: Response: No adverse reaction; IV Status: Completed infusion tb4 01:43 Drug: NS 0.9% IV 500 ml 500 ml IV at 1 bolus once; to be given as a bolus over 30 tb4 minutes Volume: 500 ml; Route: IV; Rate: 1 bolus; Site: left antecubital; 02:32 Follow up: Response: No adverse reaction; IV Status: Completed infusion tb4 01:53 Drug: Metoprolol IVP 5 mg IVP every 5 minutes; Hold for SBP < 100 or HR < 60. x3 Route: tb4 IVP; Site: left antecubital; 02:02 Drug: Metoprolol IVP 5 mg IVP every 5 minutes; Hold for SBP < 100 or HR < 60. x3 Route: tb4 IVP; Site: left antecubital; 02:11 Follow up: Response: No adverse reaction cp4 02:32 Follow up: Response: No adverse reaction tb4 02:11 Drug: Metoprolol PO 25 mg PO once Route: PO; cp4 02:30 Follow up: Response: No adverse reaction cp4 02:30 Drug: Metoprolol IVP 5 mg IVP once; Hold for SBP <100 or HR <60. Route: IVP; Site: left cp4 antecubital; 02:58 Follow up: Response: No adverse reaction; Other tb4 03:31 Drug: Metoprolol PO 25 mg PO once Route: PO; tb4 04:20 Follow up: Response: No adverse reaction tb4 03:31 Drug: Magnesium Sulfate IVPB 1 grams IVPB once over 1 hrs Route: IVPB; Infused Over: 1 tb4 hrs; Site: left antecubital; 06:56 Follow up: Response: No adverse reaction; IV Status: Completed infusion bm8 04:50 Drug: morphine IVP or IV 4 mg IVP once over 4 mins Route: IVP; Infused Over: 4 mins; lg3 Site: left antecubital; 06:56 Follow up: Response: No adverse reaction bm8 04:50 Drug: Ondansetron IVP 4 mg IVP once; over 2 minutes Route: IVP; Site: left antecubital; lg3 06:56 Follow up: Response: No adverse reaction bm8 04:53 Drug: Propofol IVP 30 mg IVP once; Document RASS score. Route: IVP; Site: left lg3 antecubital; 06:55 Follow up: Response: No adverse reaction bm8 Disposition Summary: 11/28/24 06:02 Discharge Ordered Notes: Location: Home rn Problem: new rn Symptoms: have improved rn Condition: Stable rn Diagnosis - Paroxysmal atrial fibrillation rn Followup: rn - With: Private Physician - When: As needed - Reason: Recheck today's complaints, Re-evaluation by your physician Discharge Instructions: - Discharge Summary Sheet bm8 Forms: - Medication Reconciliation Form rn - Antibiotic angle furnaceman - Prescription Opioid Use rn - Patient Portal Instructions rn - Leadership Thank You Letter rn - Work release form bm8 Critical care time excluding procedures: 04:57 Critical care time: Bedside Care: 70 minutes, Family Intervention: 5 minutes. Total rn time: 75 minutes Signatures: Dispatcher [employer] EDMS Heath Olvera MD MD rn Able, Lacie, RN RN lg3 Chacha Aragon cp4 Aarti Flores RN RN tb4 Westley Chen RN bm8 Corrections: (The following items were deleted from the chart) 00:30 00:30 BASIC METABOLIC PANEL+C.LAB.BRZ ordered. EDNM EDNM 00:30 00:30 CBC+H.LAB.BRZ ordered. EDNM EDNM 00:30 00:30 MAGNESIUM+C.LAB.BRZ ordered. [facility] EDNM 00:30 00:30 PROBNP+C.LAB.BRZ ordered. [facility] EDNM 00:30 00:30 PROTIME (+INR)+COAG.LAB.BRZ ordered. [facility] EDNM 00:30 00:30 Troponin High Sensitivity+C.LAB.BRZ ordered. [facility] EDNM 02:28 02:21 Home Meds: None; cp4 cp4 02:28 02:21 Home Meds: None; cp4 cp4 04:16 04:15 ED course: Patient with several blood pressures under 100, heart rate still 160s. rn Spoke with patient, is too early to redose the sotalol, dangerous to add amiodarone at this point and beta-blockers with magnesium not changing much. After discussion with patient decision made to perform synchronized cardioversion under sedation given persistent hypotension and lack of improvement of symptoms.. rn 04:17 04:15 ED course: Patient with several blood pressures under 100, heart rate still 160s. rn Spoke with patient, is too early to redose the sotalol, dangerous to add amiodarone at this point and beta-blockers with magnesium not changing much. After discussion with patient decision made to perform synchronized cardioversion under sedation given persistent hypotension and lack of improvement of symptoms. Patient has not stable enough for transfer and she has now been in A-fib RVR for 4 hours.. rn 07:00 06:52 ED course: Approximately 1 hour prior to discharge I heard a sound come from rn patient's room, I immediately responded and was informed that patient may have been accidentally shocked. I was not in the room when it happened and not sure the exact details. I was told that the nurse was checking defibrillator machine and may have delivered a small shock accidentally while doing standard procedure checklist on machine as she did not know that patient was still hooked up to machine for continued monitoring and chance that she went back into afib with rvr. Patient expressed some discomfort but states was brief and there were no signs of ectopy on monitor or relapse of afib. Patient quickly returned to baseline without complaints. Patient monitored for another hour and is doing well, still no complaints. Denies chest pain/dyspnea/palpitations. . rn
--- NOTE | 2024-11-28 06:02 | ER ---
Nurse's Notes [facility] Name: Gretchen Galarza Age: 54 yrs Sex: Female : 1970 Arrival Date: 11/28/2024 Time: 00:23 Bed 3 Private MD: Diagnosis: Paroxysmal atrial fibrillation Presentation: 11/28 01:19 Chief complaint: Patient states: irregular heart rate and high blood pressure. States cp4 she is having episodes that feel like hot flashes. Coronavirus screen: Vaccine status: Patient reports receiving the 1st dose of the Covid vaccine. Client denies travel out of the [place] in the last 14 days. At this time, the client does not indicate any symptoms associated with coronavirus-19. Ebola Screen: Patient negative for fever greater than or equal to 101.5 degrees Fahrenheit, and additional compatible Ebola Virus Disease symptoms Patient denies exposure to infectious person. Patient denies travel to an Ebola-affected area in the 21 days before illness onset. No symptoms or risks identified at this time. Initial Sepsis Screen: Does the patient meet any 2 criteria? HR > 90 bpm. No. Patient's initial sepsis screen is negative. Does the patient have a suspected source of infection? No. Patient's initial sepsis screen is negative. Risk Assessment: Do you want to hurt yourself or someone else? Patient reports no desire to harm self or others. Onset of symptoms was November 27, 2024. 01:19 Method Of Arrival: Ambulatory cp4 01:19 Acuity: VIKI 2 cp4 Triage Assessment: 01:20 General: Appears in no apparent distress. comfortable, Behavior is calm, cooperative, cp4 appropriate for age. Pain: Denies pain. Historical: - Allergies: 01:20 anything with alcohol in it; cp4 - Home Meds: 02:21 allopurinol 100 mg Oral tab 1 tab once daily [Active]; pravastatin 40 mg Oral tab 1 tab cp4 once daily [Active]; Eliquis 5 mg oral tablet 1 tab twice a day [Active]; lisinopril 10 mg Oral tab 1 tab once daily [Active]; sotalol 120 mg oral tablet 1 tab 2 times per day [Active]; amoxicillin 500 mg oral capsule 1 cap 3 times per day [Active]; buspirone 5 mg Oral tablet 1 tab 2 times per day [Active]; carvedilol 25 mg oral tablet 1 tab 2 times per day [Active]; levocetirizine 5 mg Oral tab 1 tab once daily [Active]; Wegovy subcutaneous [Active]; Align Dualbiotic 500 million cell-1.25 gram oral tablet,chewable daily [Active]; D3-2000 50 mcg (2,000 unit) oral capsule 1 cap daily [Active]; fluticasone propionate 50 mcg/actuation intranasal spray, suspension 1 spray daily [Active]; - PMHx: 01:20 cardiomyopathy; Diabetes - NIDDM; Hypercholesterolemia; Hypertension; PCOS; cp4 - PSHx: 01:20 Cardiac Ablation; section; I\T\D of staph infection right arm; uterine ablation; cp4 - Immunization history:: Adult Immunizations up to date. - Infectious Disease History:: Denies. - Social history:: Smoking status: Patient denies any tobacco usage or history of. - Family history:: not pertinent. - Hospitalizations: : No recent hospitalization is reported. Screenin:[facility] ED Fall Risk Assessment (Adult) History of falling in the last 3 months, tb4 including since admission No falls in past 3 months (0 pts) Confusion or Disorientation No (0 pts) Intoxicated or Sedated No (0 pts) Impaired Gait No (0 pts) Mobility Assist Device Used No (0 pt) Altered Elimination No (0 pt) Score/Fall Risk Level 0 - 2 = Low Risk Oriented to surroundings, Maintained a safe environment, Educated pt \T\ family on fall prevention, incl call for assistance when getting out of bed. Abuse screen: Denies threats or abuse. Nutritional screening: No deficits noted. Tuberculosis screening: No symptoms or risk factors identified. Assessment: 01:34 Reassessment: See triage note. General: Appears uncomfortable, Behavior is cooperative. tb4 Pain: Denies pain. Neuro: Level of Consciousness is awake, alert, obeys commands, Oriented to person, place, time, situation, Sales Coach are equal bilaterally Moves all extremities. Full function Gait is steady, Speech is normal, Facial symmetry appears normal, Cardiovascular: Reports palpitations, High blood pressure Heart tones present Capillary refill < 3 seconds is sluggish in bilateral fingers Pulses are all present. Rhythm is atrial fibrillation. Respiratory: No deficits noted. Airway is patent Trachea midline Respiratory effort is even, unlabored, Respiratory pattern is regular, symmetrical. GI: No deficits noted. No signs and/or symptoms were reported involving the gastrointestinal system. : No deficits noted. No signs and/or symptoms were reported regarding the genitourinary system. EENT: No signs and/or symptoms were reported regarding the EENT system. Derm: No signs and/or symptoms reported regarding the dermatologic system. Skin is intact, is healthy with good turgor, Skin is dry, Skin is pink, warm \T\ dry. Musculoskeletal: No deficits noted. No signs and/or symptoms reported regarding the musculoskeletal system. Circulation, motion, and sensation intact. Range of motion: intact in all extremities. 04:54 Neuro: Sherman Agitation-Sedation Scale (RASS): -2 Light sedation. lg3 05:00 General: Appears in no apparent distress. comfortable, Behavior is calm, cooperative. lg3 Pain: Denies pain. Neuro: No deficits noted. [place] Agitation-Sedation Scale (RASS): 0 - Alert and Calm Level of Consciousness is awake, alert, obeys commands, Oriented to person, place, time, situation. Cardiovascular: Denies chest pain, shortness of breath, Capillary refill < 3 seconds Clubbing of nail beds is absent JVD is absent Patient's skin is warm and dry. Rhythm is sinus rhythm. Respiratory: No deficits noted. Airway is patent Respiratory effort is even, unlabored, Respiratory pattern is regular, symmetrical. 06:55 Reassessment: Patient appears in no apparent distress at this time. Patient and/or bm8 family updated on plan of care and expected duration. Pain level reassessed. Patient is alert, oriented x 3, equal unlabored respirations, skin warm/dry/pink. Patient denies pain at this time. Patient states feeling better. Patient states symptoms have improved. Vital Signs: 01:19 BP 132 / 87; Pulse 167; Resp 18; Temp 98; Pulse Ox 99% ; Weight 127.01 kg; Height 5 ft. cp4 2 in. ; Pain 0/10; 01:23 BP 128 / 91; Pulse 182; Resp 20; Pulse Ox 99% on R/A; Pain 0/10; tb4 01:44 Pulse 161; Pulse Ox 100% on R/A; Pain 0/10; tb4 02:15 BP 126 / 107; Pulse 137; Resp 18; Pulse Ox 98% ; cp4 03:19 BP 107 / 93; Pulse 150; Resp 20; Pulse Ox 95% on R/A; Pain 0/10; tb4 04:20 BP 116 / 76; Pulse 152; Resp 20; Pulse Ox 99% on R/A; Pain 0/10; tb4 04:50 BP 124 / 78; Pulse 162; Resp 19; Pulse Ox 99% on R/A; lg3 04:57 BP 131 / 87; Pulse 96; Resp 16 S; Pulse Ox 98% on 2 lpm NC; lg3 05:32 BP 113 / 81; Pulse 87; rn 06:55 BP 119 / 86; Pulse 84; Resp 17; Temp 98; Pulse Ox 14% ; Pain 0/10; bm8 01:19 Body Mass Index 51.21 (127.01 kg, 157.48 cm) cp4 01:19 Pain Scale: Adult cp4 01:23 Pain Scale: Adult tb4 01:44 Pain Scale: Adult tb4 03:19 Pain Scale: Adult tb4 04:20 Pain Scale: Adult tb4 06:55 Pain Scale: Adult bm8 Shelley Coma Score: 06:55 Eye Response: spontaneous(4). Motor Response: obeys commands(6). Verbal Response: bm8 oriented(5). Total: 15. ED Course: 00:27 Patient arrived in ED. gm2 00:28 Heath Olvera MD is Attending Physician. rn 01:06 Inserted saline lock: 20 gauge in left antecubital area, using aseptic technique. Blood tb4 collected. Flushed with 10 mL NS. 01:06 Initial lab(s) drawn, by ED staff, sent to lab. EKG done, by ED staff, X-ray(s) taken. tb4 01:08 XRAY Chest (1 view) In Process Unspecified. EDMS 01:20 Triage completed. cp4 01:20 Arm band placed on right wrist. Patient placed in waiting room. cp4 01:49 Patient has correct armband on for positive identification. Bed in low position. Call tb4 light in reach. Side rails up X 1. Adult w/ patient. Client placed on continuous cardiac and pulse oximetry monitoring. NIBP monitoring applied. monitoring and evaluation advisor on. Pulse ox on. Door closed. Lights dimmed. 04:54 Procedure consent explained by physician. lg3 04:54 Assist provider with cardioversion (synchronized) with pads, for treatment of A fib lg3 with 150 joules Set up for procedure. Performed by Heath Olvera MD Monitored with equipment monitor phototypesetting, pulse ox, Post procedure rhythm is sinus rhythm. Patient tolerated well. 06:55 Provided Education on: post er care. bm8 06:55 IV discontinued, intact, bleeding controlled, No redness/swelling at site. Pressure bm8 dressing applied. Administered Medications: 01:43 Drug: Metoprolol IVP 5 mg IVP every 5 minutes; Hold for SBP < 100 or HR < 60. x3 Route: tb4 IVP; Site: left antecubital; 01:43 Drug: Magnesium Sulfate IVPB 1 grams IVPB once over 1 hrs Route: IVPB; Infused Over: 1 tb4 hrs; Site: left antecubital; 02:57 Follow up: Response: No adverse reaction; IV Status: Completed infusion tb4 01:43 Drug: NS 0.9% IV 500 ml 500 ml IV at 1 bolus once; to be given as a bolus over 30 tb4 minutes Volume: 500 ml; Route: IV; Rate: 1 bolus; Site: left antecubital; 02:32 Follow up: Response: No adverse reaction; IV Status: Completed infusion tb4 01:53 Drug: Metoprolol IVP 5 mg IVP every 5 minutes; Hold for SBP < 100 or HR < 60. x3 Route: tb4 IVP; Site: left antecubital; 02:02 Drug: Metoprolol IVP 5 mg IVP every 5 minutes; Hold for SBP < 100 or HR < 60. x3 Route: tb4 IVP; Site: left antecubital; 02:11 Follow up: Response: No adverse reaction cp4 02:32 Follow up: Response: No adverse reaction tb4 02:11 Drug: Metoprolol PO 25 mg PO once Route: PO; cp4 02:30 Follow up: Response: No adverse reaction cp4 02:30 Drug: Metoprolol IVP 5 mg IVP once; Hold for SBP <100 or HR <60. Route: IVP; Site: left cp4 antecubital; 02:58 Follow up: Response: No adverse reaction; Other tb4 03:31 Drug: Metoprolol PO 25 mg PO once Route: PO; tb4 04:20 Follow up: Response: No adverse reaction tb4 03:31 Drug: Magnesium Sulfate IVPB 1 grams IVPB once over 1 hrs Route: IVPB; Infused Over: 1 tb4 hrs; Site: left antecubital; 06:56 Follow up: Response: No adverse reaction; IV Status: Completed infusion bm8 04:50 Drug: morphine IVP or IV 4 mg IVP once over 4 mins Route: IVP; Infused Over: 4 mins; lg3 Site: left antecubital; 06:56 Follow up: Response: No adverse reaction bm8 04:50 Drug: Ondansetron IVP 4 mg IVP once; over 2 minutes Route: IVP; Site: left antecubital; lg3 06:56 Follow up: Response: No adverse reaction bm8 04:53 Drug: Propofol IVP 30 mg IVP once; Document RASS score. Route: IVP; Site: left lg3 antecubital; 06:55 Follow up: Response: No adverse reaction bm8 Medication: 01:34 VIS not applicable for this client. tb4 Outcome: 06:02 Discharge ordered by . rn 06:55 Discharged to home ambulatory, with family, 8 06:55 Condition: stable 06:55 Discharge instructions given to patient, family, Instructed on discharge instructions, follow up and referral plans. no drinking with medication, no driving heavy equipment, medication usage, Demonstrated understanding of instructions, follow-up care, medications, Prescriptions given X 06:57 Patient left the ED. bm8 Signatures: Dispatcher [employer] EDMS Heath Olvera MD MD rn Able, Lacie, RN RN lg3 Chacha Aragon cp4 Nicole Hirsch 2 Westley Chen RN RN bm8 Aarti Flores RN RN tb4 Corrections: (The following items were deleted from the chart) 02:28 02:21 Home Meds: None; cp4 cp4 02:28 02:21 Home Meds: None; cp4 cp4
--- NOTE | 2024-11-28 06:06 | RAD REPORT ---
INDICATION: PALPITATIONS COMPARISON: No existing relevant imaging studies are available FINDINGS: Single frontal view of the chest was obtained. SUPPORT DEVICES: None HEART/MEDIASTINUM: Cardiomediastinal contours are normal. LUNGS/PLEURA: Lungs are clear. No pleural effusion or pneumothorax. OTHER: No other significant findings. IMPRESSION: No acute findings. Electronically signed by: Lucius Noyola DO 11/28/2024 01:26 AM CDT RP NR Due to temporary technical issues with the PACS/[employer] reporting system, reports are being shilpa d by the in-house radiologist without review as a courtesy to ensure prompt reporting the interpreting radiologist is fully responsible for the content of the report. Transcribed Date/Time: 11/28/2024 6:06 AM
[2024-11-28 07:11] VITALS: TEMP 98
[2024-11-28 07:32] VITALS: BP 119/86; O2SAT 14
== END 2024-11-28 06:57 | disposition home or self-care (01) ==
LOC: ER 00:23
DX: I48.0 Paroxysmal atrial fibrillation (principal); I10 Essential (primary) hypertension; E11.9 Type 2 diabetes mellitus without complications; Z79.01 Long term (current) use of anticoagulants
CPT/HCPCS: 92960; 96365; 93005 ×2; 85025; 80048; 36415; 83735; 85610; 84484; 83880; 71045; 96375; 99291; 96366; J3475 ×2; J2704; J2405; J7040